=== PATIENT | female | born 1935 | race Caucasian/White ===

== ENCOUNTER 2019-03-19 14:36 | Outpatient (CLI) | payer MEDICARE, OTHER, SELFPAY ==
--- NOTE | 2019-03-19 | US_ITS ---
WS: [id number] DUPLEX CAROTID ULTRASOUND HISTORY: CAROTID STENOSIS RIGHT COMPARISON: None available. Peak systolic measurements are as follows (cm/sec): Right CCA: 69 Left CCA: 77 Right PICA: 55 Left PICA: 73 Right FELIPA: 72 Left FELIPA: 64 Right DICA: 55 Left DICA: 68 Right ECA: 97 Left ECA: 75 Vertebral arteries are antegrade. Right ICA/CCA: 1.0 Left ICA/CCA: 1.0 No significant atherosclerosis. No stenosis. US/ROR carotid duplex BI IMPRESSION: Normal carotid ultrasound.
== END 2019-03-19 14:37 | disposition home or self-care (01) ==
PROVIDERS: Family Provider Family Medicine; PCP Family Medicine; Referring Provider Family Medicine; Visit Provider Family Medicine
DX: I65.21 Occlusion and stenosis of right carotid artery (principal)

== ENCOUNTER → 2019-10-13 09:44 | Outpatient (BNVA) | payer MEDICARE, OTHER, SELFPAY | PROVIDERS: Family Provider Family Medicine; PCP Family Medicine; Visit Provider Dermatology | DX: L57.0 Actinic keratosis (principal); L81.9 Disorder of pigmentation, unspecified; D48.9 Neoplasm of uncertain behavior, unspecified; L82.1 Other seborrheic keratosis; Z85.828 Personal history of other malignant neoplasm of skin | CPT/HCPCS: 11102; 17000; 17003; 88304; 88305; 99203; 99204 ==

== ENCOUNTER → 2019-11-10 10:12 | Outpatient (BNVA) | payer MEDICARE, OTHER, SELFPAY | PROVIDERS: Family Provider Family Medicine; PCP Family Medicine; Visit Provider Dermatology | DX: D04.4 Carcinoma in situ of skin of scalp and neck (principal); Z85.828 Personal history of other malignant neoplasm of skin; L57.0 Actinic keratosis | CPT/HCPCS: 17000; 17003; 99213 ==

== ENCOUNTER 2019-11-26 08:53 | Emergency (ER) | payer MEDICARE, OTHER, SELFPAY ==
[2019-11-26 08:56] VITALS: BP 183/77; PULSE 75; RESP 18; TEMP 36.6; O2SAT 100; BMI 25.6
--- NOTE | 2019-11-26 09:08 | XRR_ITS ---
PROCEDURE INFORMATION: Exam: XR Right Knee Exam date and time: 11/26/2019 10:03 AM Age: 84 years old Clinical indication: Injury or trauma; Fall; Initial encounter; Blunt trauma; Knee; Right; Injury date: 11/26/19 TECHNIQUE: Imaging protocol: XR Right knee. Views: 3 views. COMPARISON: No relevant prior studies available. FINDINGS: Bones/joints: Severe degenerative change , joint effusion, and intra-articular calcifications. No acute bony injury or malalignment in the visualized right knee. Soft tissues: Calcification at the quadriceps and patellar tendon attachment sites. Vasculature: Vascular calcification. XR/XR knee RT 3V* [id number] IMPRESSION: No acute bony injury or malalignment in the visualized right knee.
--- NOTE | 2019-11-26 09:08 | XRR_ITS ---
PROCEDURE INFORMATION: Exam: XR Right Shoulder Exam date and time: 11/26/2019 9:09 AM Age: 84 years old Clinical indication: Injury or trauma; Fall; Initial encounter; Blunt trauma (contusions or hematomas); Shoulder; Right; Injury date: 11/26/19 TECHNIQUE: Imaging protocol: XR Right shoulder. Views: 2 or more views. COMPARISON: No relevant prior studies available. FINDINGS: Bones/joints: Acute comminuted, impacted, and displaced right humeral neck fracture, with extension into the right greater tuberosity. Severe degenerative change. Soft tissues: Soft tissue swelling. XR/XR shoulder RT min 2V* [id number] IMPRESSION: Acute comminuted, impacted, and displaced right humeral neck fracture, with extension into the right greater tuberosity.
--- NOTE | 2019-11-26 09:08 | XRR_ITS ---
PROCEDURE INFORMATION: Exam: XR Right Humerus Exam date and time: 11/26/2019 9:09 AM Age: 84 years old Clinical indication: Injury or trauma; Fall; Initial encounter; Blunt trauma (contusions or hematomas); Arm, upper; Right; Injury date: 11/26/19 TECHNIQUE: Imaging protocol: XR Right humerus Views: 2 or more views. COMPARISON: No relevant prior studies available. FINDINGS: Bones/joints: Acute comminuted, impacted, and displaced right humeral neck fracture, with fracture extension into the greater tuberosity. Severe degenerative change. Soft tissues: Soft tissue swelling. XR/[place] [id number] IMPRESSION: Acute comminuted, impacted, and displaced right humeral neck fracture, with fracture extension into the greater tuberosity.
--- NOTE | 2019-11-26 09:09 | W.ED.FALL ---
HPI - Fall General: Chief Complaint: Fall Stated Complaint: FALL FACIAL INJURY Time Seen by Provider: 11/26/19 09:00 History of Present Illness: HPI Narrative: Patient arise from home after a fall when she was trying in the bed she tripped she says and sustained pain to her right shoulder area into her right knee. Patient does not not want to move her right arm. Denies any other injuries. 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 MD complaint: fall Onset (ago): minute(s) Fall from: standing Fall witnessed: no Place fall occurred: home Loss of consciousness: None Prolonged down time: no Symptoms prior to fall: none Context: tripped/slipped Associated symptoms-after fall: Denies abdominal pain, chest pain or headache(s) Review of Systems Const: Denies: fever(s), chills or body aches Eyes: Denies: change in vision or blurry vision ENMT: Denies: throat pain or nasal congestion Card: Denies: chest pain or dyspnea on exertion Resp: Denies: dyspnea, productive cough or non-productive cough GI: Denies: abdominal pain, nausea or vomiting Musc: Reports: extremity pain and joint pain (Right shoulder right knee) Skin/Breast: Denies: rash Neuro: Denies: headache(s) Psych: Denies: anxiety or depression Mitul/Lymph: Denies: easy bruising PFSH ED PFSH: Medical History (Updated 11/26/19 @ 10:44 by ALEXANDRIA Rosales) Actinic keratoses History of nonmelanoma skin cancer Family History Other CAD (coronary artery disease) Cancer Diabetes Social History Smoking and tobacco status: never smoked Alcohol intake: never History of recent travel: No Physical Exam Const: COMMON NORMALS: no acute distress, average body habitus and patient oriented x3 HENMT: COMMON NORMALS: normocephalic HEAD & SCALP: normal to inspection and normocephalic FACE & SINUS: normal facial exam Eye: COMMON NORMALS: conjunctivae normal GENERAL EYE: appearance normal, both eyes and all related structures CONJUNCTIVA: Yes conjunctivae normal Neck/C-Spine: COMMON NORMALS: no JVD Chest: COMMONS NORMALS: normal inspection of the chest Resp: COMMON NORMALS: normal respiratory effort and clear to auscultation bilaterally AUSCULTATION: clear to auscultation bilaterally Cardio: COMMON NORMALS: no JVD, regular rate and regular rhythm RATE: regular rate RHYTHM: regular rhythm GI: COMMON NORMALS: Normal to inspection, nondistended, normoactive bowel sounds present Extremity: RIGHT UPPER EXTREMITY: Yes shoulder joint (Very tender not wanting to move mild swelling) RIGHT LOWER EXTREMITY: Yes knee joint (Good range of motion slightly tender no bruising or abrasions noted) Neuro: COMMON NORMALS: patient oriented x3 Course Vital Signs: Vital signs: Vital Signs Temperature 97.8 F 11/26/19 08:56 Pulse Rate 66 11/26/19 10:35 Respiratory Rate 12 11/26/19 10:35 Blood Pressure 129/72 11/26/19 10:35 Pulse Oximetry 94 11/26/19 10:35 MDM - Fall MDM Narrative: Medical decision making narrative: Discussed case with Dr. Krishnamurthy and decide on treatment plan together Discharge Plan Discharge Patient Disposition: Home Clinical Impression: Fracture, humerus, greater tuberosity Qualifiers: Encounter type: initial encounter Fracture type: closed Fracture alignment: displaced Laterality: right Qualified Code(s): S42.251A - Displaced fracture of greater tuberosity of right humerus, initial encounter for closed fracture Condition: Stable Prescriptions: New ketorolac 10 mg tablet 10 mg PO Q8H PRN (Reason: pain) 3 Days Qty: 10 RF: 0 No Action doxycycline hyclate 50 mg capsule 50 mg PO DAILY RF: 0 lovastatin 40 mg tablet 60 mg PO DAILY RF: 0 losartan 50 mg tablet 50 mg PO BID RF: 0 vitamin H00-aulowmv B1 1,000-100 mg/mL solution 1 ml IM Q30D RF: 0 glipizide 5 mg tablet 5 mg PO DAILY RF: 0 febuxostat [Uloric] 40 mg tablet 40 mg PO DAILY RF: 0 zolpidem 5 mg tablet 5 mg PO BEDTIME RF: 0 mupirocin 2 % ointment 1 applic TOPICAL BID Qty: 22 RF: 2 metoprolol tartrate 50 mg Tablet 50 mg PO BID RF: 0 Discharge Orders: Discharge Order (Routine); Ordered 11/26/19 Ordered By: Tito Cervantes Referrals: Bhavik Ball MD [Primary Care Provider] - Discharge Diet: Usual diet Discharge Activity: Limit activity as instructed Patient Instructions: Fractures - Humerus, Arm Fracture in Adults (ED) Activity Restrictions/Additional Instructions: Follow-up with medical provider as directed. Take medications as prescribed. Return to the ER or your medical provider if condition worsens. Please read and understand discharge instructions. If any questions ask please. Follow-up with orthopedic clinic as scheduled by the hospital Discharge Date/Time: 11/26/19 10:59 Coding Level of Care Code ED Analytical Data Scientist for Chg Fwd 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
[2019-11-26] MEDS: ketorolac 30 mg/mL INJ IVP (10:05)
[2019-11-26 10:06] VITALS: BP 160/74; PULSE 71; RESP 23; O2SAT 94
[2019-11-26 10:35] VITALS: BP 129/72; PULSE 66; RESP 12; O2SAT 94
--- NOTE | 2019-11-26 11:23 | DCPLANNER ---
shared services manager had message to schedule a follow up appointment for patient with ortho. shared services manager called the ortho clinic, spoke with Pat, gave clinic patients information. shared services manager was told that patients information would be printed and reviewed. Clinic will call patient with appointment information.
--- NOTE | 2019-12-01 08:04 | DCPLANNER ---
Patient had a follow up appointment scheduled for 11.29.19 - patient did attend the appointment.
== END 2019-11-26 10:59 | disposition home or self-care (01) ==
PROVIDERS: Emergency Provider Nurse Practitioner Family; PCP Family Medicine
DX: S42.251A Displaced fracture of greater tuberosity of right humerus, initial encounter for closed fracture (principal); W01.0XXA Fall on same level from slipping, tripping and stumbling without subsequent striking against object, initial encounter
CPT/HCPCS: 12345; 73030; 73060; 73562; 96374; 96375; 99282; 99283; E0114; J1885

== ENCOUNTER 2019-12-07 08:31 | Outpatient (CLI) | payer MEDICARE, OTHER, SELFPAY ==
--- NOTE | 2019-12-14 14:11 | MR_ITS ---
WS: [id number] MRI RIGHT SHOULDER NONCONTRAST TECHNIQUE: Sagittal T2, coronal T1, T2 and proton density imaging. Axial gradient PDE imaging. CLINICAL INFORMATION: S42.251A Displaced fracture of greater tuberosity of righ... COMPARISON: Radiograph December 09, 2019 FINDINGS: Markedly comminuted impacted fracture involving the right humeral head and neck. Comminuted fracture extends into the greater tuberosity with avulsion. Diffuse edema about the right humeral head and nec k and right glenohumeral joint. Associated blood products in the subacromial/subdeltoid bursa with gallego rrounding hematoma. Diffuse edema in the adjacent soft tissues. Small amount of edema along the inferior anterior glenoid which appears intact. Advanced degenerative changes AC joint with fluid and edema. Mild downsloping of the acromion with loss of the subacromial space.No visualized scapular fractures. Narrowing of the subacromial space. Humeral head is rotated and displaced posterior laterally relative to the humeral shaft. 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 Distal supraspinatus appears intact. Infraspinatus tendon appears intact. Fluid along the bicep s tendon sheath. Diffuse edema involving the subscapularis tendon appears intact. IMPRESSION: 1. Markedly comminuted fracture involving the humeral head and neck with diffuse surrounding edema a nd hematoma. 2. Comminuted fractures involving the humeral neck extending into the greater tuberosity with avulsi on. 3. Humeral head is rotated and displaced posterior laterally relative to the humeral shaft. 4. Bony glenoid appears intact. Small amount of edema along the anterior inferior glenoid. 5. Associated moderate subacromial/subdeltoid effusion and glenohumeral joint effusion with hematoma . 6. No definite visualized scapular fractures.
== END 2019-12-07 08:32 | disposition home or self-care (01) ==
LOC: RADSHAW 08:37
PROVIDERS: PCP Family Medicine; Visit Provider Specialist
DX: S42.251A Displaced fracture of greater tuberosity of right humerus, initial encounter for closed fracture (principal); S40.021A Contusion of right upper arm, initial encounter; X58.XXXA Exposure to other specified factors, initial encounter; M25.411 Effusion, right shoulder
CPT/HCPCS: 73221

== ENCOUNTER → 2019-12-09 11:29 | Outpatient (BNVA) | payer MEDICARE, OTHER, SELFPAY | PROVIDERS: PCP Family Medicine; Visit Provider Specialist | DX: S42.91XA Fracture of right shoulder girdle, part unspecified, initial encounter for closed fracture (principal); S42.251A Displaced fracture of greater tuberosity of right humerus, initial encounter for closed fracture; X58.XXXA Exposure to other specified factors, initial encounter | CPT/HCPCS: 73030 ==

== ENCOUNTER → 2019-12-30 11:20 | Outpatient (BNVA) | payer MEDICARE, OTHER, SELFPAY | PROVIDERS: PCP Family Medicine; Visit Provider Specialist | DX: S42.91XA Fracture of right shoulder girdle, part unspecified, initial encounter for closed fracture (principal); S42.251A Displaced fracture of greater tuberosity of right humerus, initial encounter for closed fracture; X58.XXXA Exposure to other specified factors, initial encounter | CPT/HCPCS: 73030 ==

== ENCOUNTER → 2020-01-24 10:41 | Outpatient (BNVA) | payer MEDICARE, OTHER, SELFPAY | PROVIDERS: PCP Family Medicine; Visit Provider Specialist | DX: S42.251A Displaced fracture of greater tuberosity of right humerus, initial encounter for closed fracture (principal); S42.91XA Fracture of right shoulder girdle, part unspecified, initial encounter for closed fracture; X58.XXXA Exposure to other specified factors, initial encounter | CPT/HCPCS: 73030 ==

== ENCOUNTER 2020-09-20 09:29 | Outpatient (CLI) | payer MEDICARE, OTHER, SELFPAY ==
--- NOTE | 2020-09-20 09:37 | NM_ITS ---
WS: [id number] NUCLEAR MEDICINE GASTRIC STUDY CLINICAL INFORMATION: GASTROPARESIS TECHNIQUE: Following oral ingestion of cooked egg mixed with 0.88 mCi technetium 99m sulfur colloid, anterior images of the stomach were obtained over the course of 90 minutes. Activity curve was perfor med over the course of 90 minutes with linear regression analysis. COMPARISON: None. FINDINGS: Oral ingestion of cooked egg mixture. T1/2: 405 minutes 16% emptying at 119 minutes. NM/[place] [id number] IMPRESSION: Markedly delayed gastric emptying with only 16% emptying at 2 hours. *Normal median T1 half 90 minutes for solid egg meal (45-110 minutes). Delayed gastric retention is defined as 90% retained at 1 hour, 60% at 2 hour s, 30% at 3 hours, and 10% at 4 hours (normal percent gastric retention is 37-9 0% at 1 hour, 30-60% at 2 hours, and 0-10% at 4 hours).
== END 2020-09-20 09:30 | disposition home or self-care (01) ==
LOC: RAD 09:34
PROVIDERS: PCP Family Medicine; Visit Provider Family Medicine
DX: K31.84 Gastroparesis (principal)
CPT/HCPCS: 78264; A9541

== ENCOUNTER 2021-08-20 14:24 | Outpatient (CLI) | payer MEDICARE, OTHER, SELFPAY ==
--- NOTE | 2021-08-20 14:37 | CT_ITS ---
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 Coronal and sagittal reformats are submitted. All CT scans at [facility] use at least one of these dose optimization techniques: automated exposure control; mA and/or kV adjustment per patient size (includes targeted exams where dose is matched to clinical indication); or iterative reconstruction. CONTRAST: None DLP: 501.27 mGy.cm COMPARISON: None available. Lungs and central airway: No pulmonary nodule or mass. No pneumonia. Pleura: Normal. No pleural effusion. Heart and pericardium: Mild LEFT heart enlargement. No effusion. Mediastinum and rissa: No mediastinum or hilar adenopathy. Vessels: Mild scattered atherosclerotic plaque within the aorta. Pulmonary artery size is equal to th e aorta. Chest wall and lower neck: No soft tissue masses. Upper abdomen: Prior cholecystectomy. Incompletely visualized 18 x 14 mm mass partially exophytic fro m the mid to upper RIGHT kidney. This is not a simple cyst as there is an area of increased attenuati on which may be calcification or septation. No adrenal mass. Mild pancreatic atrophy. Splenic granulo hill. Osseous structures: Advanced spondylitic changes throughout the thoracic spine. No osteoblastic or os teolytic bone disease. Marked deformity involving the RIGHT humeral head and glenohumeral joint. Moderate calcification at the origin of celiac axis and SMA. CT/CT chest wo con [id number] IMPRESSION: 1. No pulmonary mass or nodule. 2. No adenopathy. 3. Indeterminate exophytic mass from the RIGHT kidney measures 18 x 14 mm. Rec ommend follow-up renal ultrasound to exclude solid mass. This is not a simple c yst. 4. Prior cholecystectomy.
[2021-08-20 15:17] LABS: Blood Urea Nitrogen 21 mg/dL (8-23)
== END 2021-08-20 14:25 | disposition home or self-care (01) ==
PROVIDERS: PCP Family Medicine; Visit Provider Specialist
DX: D10.39 Benign neoplasm of other parts of mouth (principal); N28.89 Other specified disorders of kidney and ureter; Z90.49 Acquired absence of other specified parts of digestive tract
CPT/HCPCS: 71250; 82565; 84520

== ENCOUNTER 2021-08-21 11:51 | Outpatient (CLI) | payer MEDICARE, OTHER, SELFPAY ==
--- NOTE | 2021-08-21 11:58 | MR_ITS ---
WS: [id number] MRI OF THE ORBITS, FACE AND NECK WITHOUT GADOLINIUM ENHANCEMENT. INDICATION: Mass LEFT side of tongue TECHNIQUE: Axial T1 and T2 coronal T2 sagittal T2 coronal T1 coronal T1 fat sat axial T2 coronal T2 f at sat coronal STIR and axial STIR imaging through the tongue base. GFR 21. Gadolinium not administered. Exam is somewhat limited by patient motion, lack of gadolinium, and susceptibility artifact from dental hardware FINDINGS: Correlated not administered due to GFR. 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 Susceptibility artifact in this area degrades images from dental hardware. Infiltrating neoplasm measures approximately 4.1 x 1.9 x 3.9 cm AP by transverse by craniocaudal. Inf erior extension to the tongue base which is relatively spared. Mass effect on the genioglossus. Perip heral extension involves the mylohyoid and hypoglossus. This extends anteriorly and laterally abuttin g the maxilla and mandible. This does not appear across midline. Posterior extension just to the supe rior submandibular space and inferior extension to the sublingual space. LEFT submandibular gland shanelle ears normal. Root of the tongue appears normal. Normal vallecula and epiglottis. Normal piriform sinu ses. Prominent LEFT level 2 cervical lymph node anterior to the sternocleidomastoid measuring 6 x 10 x 5 m m. No other suspicious cervical lymph nodes visualized. This can be further evaluated with PET/CT. 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 Chronic wedge-shaped infarct in the LEFT cerebellum. Mode rate parenchymal volume loss partially visualized intracranially. Parotid glands appear normal. Moderate spondylitic changes cervical spine. Small disc protrusions at C3-C4, C4-C5 and C5-C6. Mild c entral canal stenosis C4-C5. Impression MR/[place] [id number] IMPRESSION: 1. T2 hyperintense mass involving the LEFT intrinsic muscles of the tongue ext ending from the oral mucosal surface inferiorly to the level of the mandible on the LEFT. This measures approximately 4.1 x 1.8 x 3.9 cm compatible with neopl asm. 2. Associated LEFT RIGHT mass effect. This does not cross the lingual septum. 3. Tongue mass extends peripherally to involve the mylohyoid and hypoglossus. Mass effect on the genioglossus inferiorly. This extends inferiorly into the gallego blingual space and just into the anterior submandibular space 4. Slightly prominent level 2 cervical lymph anterior to the sternomastoid dionicio suring 10 x 5 mm is nonspecific. No other enlarged cervical lymph nodes. PET CT could be used in further staging. 5. Vallecula and piriform sinuses appears normal. Normal epiglottis.
== END 2021-08-21 11:52 | disposition home or self-care (01) ==
LOC: RAD 11:52
PROVIDERS: PCP Family Medicine; Visit Provider Specialist
DX: D10.39 Benign neoplasm of other parts of mouth (principal); R93.89 Abnormal findings on diagnostic imaging of other specified body structures; R59.0 Localized enlarged lymph nodes
CPT/HCPCS: 70336

== ENCOUNTER 2021-10-23 08:51 | Outpatient (CLI) | payer MEDICARE, OTHER, SELFPAY ==
[2021-10-23 09:01] LABS: Basophils % 0.2 %; Eosinophils % 0.2 %; Lymphocytes % 36.3 %; Mean Corpuscular Hemoglobin 30.2 pg (28.0-34.0); Mean Corpuscular Volume 97.7 fl (81-99); Mean Platelet Volume 11.1 fL (7.4-10.4); Monocytes # 0.3 10^3/uL (0.2-0.9); Monocytes % 5.6 %; Neutrophils # 3.11 10^3/uL (1.8-7.7); Neutrophils % 55.9 %; Nucleated Red Blood Cells % 0 %; Platelet Count 153 10^3/cmm (130-400); Red Blood Count 2.15 10^6/uL (4.1-5.3); Red Cell Distribution Width 18.7 % (12.1-15.1); White Blood Count 5.6 10^3/uL (4.0-10.0)
[2021-10-23 09:07] LABS: Hemoglobin 6.5 g/dL (11.5-15.3)
== END 2021-10-23 08:52 | disposition home or self-care (01) ==
PROVIDERS: PCP Family Medicine; Visit Provider Nurse Practitioner Family
DX: D64.9 Anemia, unspecified (principal)
CPT/HCPCS: 85025

== ENCOUNTER → 2021-10-24 08:08 | Day surgery (SDC) | payer MEDICARE, OTHER, SELFPAY ==
[2021-10-24] VITALS (9 sets, daily range): BP systolic 196–203; BP diastolic 81–99; PULSE 85–102; RESP 18; TEMP 36.4–37.1; O2SAT 92–99
[2021-10-24 08:38] LABS: Hematocrit 21.1 % (37.0-47.0); Hemoglobin 6.6 g/dL (11.5-15.3)
--- NOTE | 2021-10-24 10:05 | PC.NURSE ---
Pt to GI lab for 2 units PRBC's. Hg noted at 6.6. First unit infusing without difficulty to left upper arm. No reaction noted.
[2021-10-24] MEDS: sodium chloride 0.9% (100 ml) 100 ML 10 ML ×2 (10:17→12:08)
== END ==
LOC: GILAB 08:11
PROVIDERS: PCP Family Medicine; Visit Provider Nurse Practitioner Family
DX: D64.9 Anemia, unspecified (principal)
CPT/HCPCS: 36415; 36430; 85014; 85018; 86850; 86900; 86920; P9016

== ENCOUNTER 2021-10-26 04:26 | Inpatient (IN) | payer MEDICARE, OTHER, SELFPAY ==
[2021-10-26] VITALS (28 sets, daily range): BP systolic 114–138; BP diastolic 75–88; PULSE 72–120; RESP 11–39; TEMP 36.3–37.7; O2SAT 92–100; BMI 20.8; BMI 24.3
--- NOTE | 2021-10-26 04:30 | XRR_ITS ---
PROCEDURE INFORMATION: Exam: XR Chest Exam date and time: 10/26/2021 4:33 AM Age: 86 years old Clinical indication: Shortness of breath; Chest pressure; Patient HX: C/O chest pain with SOB. Copd. History of skin and tongue cancer. ; Additional info: Cp TECHNIQUE: Imaging protocol: Radiologic exam of the chest. Views: 1 view. COMPARISON: CT chest con [id number] 08/20/2021 3:24 PM FINDINGS: Lungs: There is redistribution and indistinctness of the pulmonary vasculature, in association with haziness of the lungs and small bilateral pleural effusions, which in the setting of cardiomegaly is consistent with pulmonary edema. Pneumonia should be excluded clinically. No pneumothorax. Pleural spaces: See Lungs finding. Heart/Mediastinum: Stable cardiomediastinal silhouette. Bones/joints: Degenerative changes of the spine and left shoulder joint seen. Old fracture deformity of the right proximal humerus re-identified. XR/XR chest 1V portable [id number] IMPRESSION: Imaging findings of pulmonary edema with small bilateral pleural effusions. Pneumonia should be excluded clinically.
--- NOTE | 2021-10-26 04:33 | ECG_ITS ---
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 Measurements Intervals [place] Rate: 118 P: 53 TX: 160 QRS: -9 QRSD: 81 T: 5 QT: 336 QTc: 472 Interpretive Statements SINUS TACHYCARDIA Compared to ECG 04/05/2018 13:20:28 Sinus rhythm no longer present T-wave abnormality no longer present Electronically Signed On 10-26-2021 17:47:46 CDT by Jared Gage M.D. [id number]
--- NOTE | 2021-10-26 04:57 | ED_ITS ---
HPI - Chest Pain General: Chief Complaint: Chest Pain Stated Complaint: CP/SOB Time Seen by Provider: 10/26/21 04:26 Source: patient and EMS Mode of arrival: EMS Limitations: no limitations History of Present Illness: 86-year-old female here [facility] she has had a history of throat cancer did have recent surgery states she woke up this morning having severe chest pain states her pain was a 9 out of 10 was given nitro by EMS states her pain is improved is currently a 2 out of 10. She states she has had some slight shortness of breath as well. Patient is very frail appearing. She denies any fever denies any cough denies any vomiting or diarrhea. Associated symptoms: Deny abdominal pain, dyspnea, fever(s), nausea or vomiting Review of Systems Const: Denies: fever(s), chills, body aches or change in appetite Eyes: Denies: blurry vision or eye discomfort ENMT: Denies: throat pain or dental pain Card: Reports: chest pain Resp: Denies: dyspnea GI: Denies: abdominal pain, nausea, vomiting or diarrhea : Denies: dysuria Musc: Denies: neck pain or back pain Skin/Breast: Denies: rash Neuro: Denies: headache(s) Psych: Denies: depression Mitul/Lymph: Denies: easy bruising All/Imm: Denies: urticaria PFSH ED PFSH: Medical History Actinic keratoses COPD (chronic obstructive pulmonary disease) Diabetes History of nonmelanoma skin cancer Hypertension Renal failure Family History Other CAD (coronary artery disease) Cancer Diabetes Social History Smoking and tobacco status: never smoked Alcohol intake: never History of recent travel: No Physical Exam Const: COMMON NORMALS: patient oriented x3 GENERAL APPEARANCE: frail appe aring HENMT: COMMON NORMALS: normocephalic and atraumatic HEAD & SCALP: normocephalic and atraumatic Eye: COMMON NORMALS: Equal, round and reactive pupils present and EOMs intact bilaterally PUPIL: Yes Equal, round and reactive pupils present Neck/C-Spine: COMMON NORMALS: full ROM and supple Chest: COMMONS NORMALS: normal inspection of the chest and normal palpation of entire chest wall Resp: COMMON NORMALS: normal respiratory effort, No retractions, No use of accessory muscles and clear to auscultation bilaterally AUSCULTATION: clear to auscultation bilaterally Cardio: COMMON NORMALS: regular rhythm and No murmurs present (Cardio) RATE: tachycardic RHYTHM: regular rhythm GI: COMMON NORMALS: Normal to inspection, nondistended, normoactive bowel sounds present, Soft to palpation, non-tender and no masses PALPATION: Yes Soft to palpation Extremity: COMMON NORMALS: normal to inspection and full ROM Neuro: COMMON NORMALS: patient oriented x3, moves all extremities and no focal motor deficits Psych: COMMON NORMALS: mental status grossly normal, Normal thought process present and cooperative THOUGHT PROCESS: Normal thought process present Skin: COMMON NORMALS: no rashes or lesions noted and no wounds GENERAL SKIN EXAM: no rashes or lesions noted Course Vital Signs: Vital signs: Vital Signs Temperature 98.0 F 10/26/21 04:26 Pulse Rate 120 H 10/26/21 04:26 Respiratory Rate 18 10/26/21 04:26 Blood Pressure 128/79 10/26/21 04:26 Pulse Oximetry 95 10/26/21 04:26 Oxygen Delivery Me thod 10/26/21 04:26 MDM - Chest Pain Medical Decision Making Patient presents for chest pain her pain is improved her troponin is elevated consistent with NSTEMI have had a long discussion with her she does not want any aggressive treatment she does not want a cath she has been to be admitted to be evaluated there for medical management we will give her Lovenox here. Lab Data : 10/26/21 05:00 10/26/21 05:00 Laboratory Results WBC 8.0 10^3/uL (4.0-10.0) 10/26/21 05:00 RBC 3.64 10^6/uL (4.1-5.3) L 10/26/21 05:00 Hgb 11.1 g/dL (11.5-15.3) L 10/26/21 05:00 Hct 33.7 % (37.0-47.0) L 10/26/21 05:00 MCV 92.6 fl (81-99) 10/26/21 05:00 MCH 30.5 pg (28.0-34.0) 10/26/21 05:00 MCHC 32.9 g/dL (30.0-36.0) 10/26/21 05:00 RDW 17.6 % (12.1-15.1) H 10/26/21 05:00 Plt Count 176 10^3/cmm (130-400) 10/26/21 05:00 MPV 10.5 fL (7.4-10.4) H 10/26/21 05:00 Neut % (Auto) 70.3 % 10/26/21 05:00 Lymph % (Auto) 22.7 % 10/26/21 05:00 Bacon % (Auto) 5.4 % 10/26/21 05:00 Eos % (Auto) 0.0 % 10/26/21 05:00 Baso % (Auto) 0.1 % 10/26/21 05:00 Neut # (Auto) 5.63 10^3/uL (1.8-7.7) 10/26/21 05:00 Lymph # (Auto) 1.8 10^3/uL (0.8-4.8) 10/26/21 05:00 Bacon # (Auto) 0.4 10^3/uL (0.2-0.9) 10/26/21 05:00 Eos # (Auto) 0.0 10^3/uL (0.0-0.8) 10/26/21 05:00 Baso # (Auto) 0.0 10^3/uL (0.0-0.1) 10/26/21 05:00 Nucleated RBC % (auto) 0 % 10/26/21 05:00 Nucleated RBCs # 0.0 /100WBC 10/26/21 05:00 D-Dimer 3.80 ug/mIFEU (0-0.59) H 10/26/21 05:00 Sodium 134 mmol/L (136-145) L 10/26/21 05:00 Potassium 4.3 mmol/L (3.5-5.1) 10/26/21 05:00 Chloride 102 mmol/L (98-107) 10/26/21 05:00 Carbon Dioxide 19 mmol/L (22-29) L 10/26/21 05:00 Anion Gap 17.3 (5-19) 10/26/21 05:00 BUN 36 mg/dL (8-23) H 10/26/21 05:00 Creatinine 1.4 mg/dL (0.5-0.9) H 10/26/21 05:00 GFR Calculation Not Reportable 10/26/21 05:00 Glucose 191 mg/dL (65-115) H 10/26/21 05:00 Calculated Osmolality 291 mOsm/kg (285-295) 10/26/21 05:00 Calcium 8.0 mg/dL (8.5-10.5) L 10/26/21 05:00 Total Bilirubin 0.2 mg/dL (0.15-1.2) 10/26/21 05:00 AST 37 U/L (0-32) H 10/26/21 05:00 ALT 24 U/L (0-33) 10/26/21 05:00 Alkaline Phosphatase 136 U/L (35-105) H 10/26/21 05:00 Troponin T Baseline 557 ng/L (0-10) H* 10/26/21 05:00 Total Protein 6.0 g/dL (6.6-8.7) L 10/26/21 05:00 Albumin 2.3 g/dL (3.5-5.2) L 10/26/21 05:00 Globulin 3.7 g/dL (1.3-4.6) 10/26/21 05:00 EKG Data EKG 1: I personally reviewed and interpreted this EKG as follows: EKG interpretation date: 10/26/21 EKG interpretation time: 04:33 Interpretation: sinus tach hr [address] or t wave abnormalities qrs 81 qtc 406 Discharge Plan Discharge Condition: Stable Prescriptions: No Action lovastatin 40 mg tablet 60 mg PO DAILY Rx Instructions: per tube metoprolol tartrate 50 mg Tablet 50 mg PO BID Rx Instructions: per tube acetaminophen 325 mg Tablet 650 mg PO .Q4HR PRN (Reason: Pain) oxycodone 5 mg/5 mL Solution 2.5 mg feeding tube .Q4HR PRN (Reason: Pain) Neurontin 250 mg/5 mL Solution 100 mg PO TID Rx Instructions: per tube cyanocobalamin (vitamin B-12) 1,000 mcg/mL solution 1,000 mcg IM .[id number] folic acid 1 mg Tablet 1 mg PO DAILY Augmentin 500-125 mg Tablet 1 tab PO BID chlorhexidine gluconate 0.12 % Mouthwash 15 ml PO .QSHIFT furosemide 40 mg/4 mL Solution 40 mg PO QAM psyllium Packet 1 packet feeding tube DAILY PRN (Reason: Constipation) thiamine HCl (vitamin B1) 100 mg/mL Solution 100 mg PO DAILY Rx Instructions: per tube ramelteon 8 mg Tablet 8 mg PO DAILY PRN (Reason: Insomnia) Rx Instructions: per tube Referrals: Bhavik Ball MD [Primary Care Provider] - Coding Level of Care Code ED [employer] 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
[2021-10-26 05:04] LABS: Basophils % 0.1 %; Hematocrit 33.7 % (37.0-47.0); Hemoglobin 11.1 g/dL (11.5-15.3); Lymphocytes # 1.8 10^3/uL (0.8-4.8); Lymphocytes % 22.7 %; Mean Corpuscular HGB Conc 32.9 g/dL (30.0-36.0); Mean Corpuscular Hemoglobin 30.5 pg (28.0-34.0); Mean Corpuscular Volume 92.6 fl (81-99); Mean Platelet Volume 10.5 fL (7.4-10.4); Monocytes # 0.4 10^3/uL (0.2-0.9); Monocytes % 5.4 %; Neutrophils # 5.63 10^3/uL (1.8-7.7); Neutrophils % 70.3 %; Nucleated Red Blood Cells % 0 %; Platelet Count 176 10^3/cmm (130-400); Red Blood Count 3.64 10^6/uL (4.1-5.3); Red Cell Distribution Width 17.6 % (12.1-15.1)
[2021-10-26 05:20] LABS: Alanine Aminotransferase 24 U/L (0-33); Albumin Level 2.3 g/dL (3.5-5.2); Alkaline Phosphatase 136 U/L (35-105); Aspartate Amino Transferase 37 U/L (0-32); Blood Urea Nitrogen 36 mg/dL (8-23); Carbon Dioxide 19 mmol/L (22-29); Chloride 102 mmol/L (98-107); Globulin 3.7 g/dL (1.3-4.6); Glucose 191 mg/dL (65-115); Osmolality Calculated 291 mOsm/kg (285-295); Sodium 134 mmol/L (136-145); Total Bilirubin 0.2 mg/dL (0.15-1.2)
--- NOTE | 2021-10-26 05:20 | CTR_ITS ---
PROCEDURE INFORMATION: Exam: CTA Chest With Contrast Exam date and time: 10/26/2021 5:37 AM Age: 86 years old Clinical indication: Pain and abnormal findings; Abnormal diagnostic tests; Elevated d-dimer; Shortness of breath; Chest pressure; Patient HX: C/O chest pain with SOB. Elevated d dimer. Copd. History of skin/tongue cancer. ; Additional info: Cp TECHNIQUE: Imaging protocol: Computed tomographic angiography of the chest with contrast. 3D rendering (Not supervised by radiologist): MIP and/or 3D reconstructed images were created by the technologist. Radiation optimization: All CT scans at this facility use at least one of these dose optimization techniques: automated exposure control; mA and/or kV adjustment per patient size (includes targeted exams where dose is matched to clinical indication); or iterative reconstruction. Contrast material: OMNI 350; Contrast volume: 81 ml; Contrast route: INTRAVENOUS (IV); COMPARISON: CT chest [facility] [id number] 08/20/2021 3:24 PM RADIATION DOSE METRICS: Total DLP (mGy-cm): 314.08 FINDINGS: Pulmonary arteries: Normal. No pulmonary emboli. Aorta: Mild diffuse atherosclerotic disease is present. No aortic aneurysm. No aortic dissection. Lungs: There is mosaic pattern of attenuation of the lungs, in association with paraseptal thickening and moderate bilateral pleural effusions, consistent with pulmonary edema. There is nonenhancing consolidations in the lower lobes, in association with peribronchial thickening. Tiny calcified granuloma noted in the left upper lobe. No pneumothorax. Pleural spaces: See Lungs finding. Heart: Mildly enlarged heart. Coronary atherosclerotic calcifications seen. No pericardial effusion. Lymph nodes: Tiny calcified mediastinal and left hilar lymph nodes noted, likely sequela of previous granulomatous disease. Bones/joints: Degenerative changes of the spine and left shoulder joint seen. Old healed fracture deformity of the right proximal humerus seen. Soft tissues: Unremarkable. CT/CT angio chest PE protcl [id number] IMPRESSION: 1. No pulmonary embolus. 2. Pulmonary edema with moderate bilateral pleural effusions. 3. Bilateral lower lobe consolidations, concerning for superimposed pneumonia. Clinical correlation is recommended.
[2021-10-26 05:22] LABS: Anion Gap 17.3 (5-19); Potassium 4.3 mmol/L (3.5-5.1)
[2021-10-26] MEDS: iohexol 350 mg/mL 100 mL Btl IV (05:47)
[2021-10-26 05:49] LABS: Troponin(5th) Baseline 557 ng/L (0-10)
--- NOTE | 2021-10-26 06:06 | ECG_ITS ---
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 Measurements Intervals [place] Rate: 121 P: 45 PA: 148 QRS: -8 QRSD: 80 T: 44 QT: 417 QTc: 592 Interpretive Statements SINUS TACHYCARDIA INFERIOR MYOCARDIAL INFARCTION , PROBABLY OLD [40+ ms Q WAVE AND/OR ST/T ABNORMALITY IN II/aVF] Compared to ECG 04/05/2018 13:20:28 Myocardial infarct finding now present Sinus rhythm no longer present T-wave abnormality no longer present Electronically Signed On 10-26-2021 17:51:56 CDT by Jared Gage M.D. [id number]
--- NOTE | 2021-10-26 06:37 | USCV_ITS ---
Teetee Arango Age: 86 Gender: F : 1935 Exam Date: 10/26/2021 10:31 Ordering Phys: Gustavo Parisi MD Technologist: REMEDIOS [place] [facility] [place]: NSTEMI BP: 114 / 80 HR: 35 Rhythm: Atrial fibrillation Technical Quality: Adequate MEASUREMENTS (Male / Female) Normal Values 2D ECHO LV Diastolic Diameter PLAX 4.2 cm 4.2 - 5.9 / 3.9 - 5.3 cm LV Systolic Diameter PLAX 3.7 cm IVS Diastolic Thickness 1.5 cm 0.6 - 1.0 / 0.6 - 0.9 cm IVS Systolic Thickness 1.8 cm LVPW Diastolic Thickness 1.3 cm 0.6 - 1.0 / 0.6 - 0.9 cm LVPW Systolic Thickness 1.5 cm LVOT Diameter 2.0 cm LV Ejection Fraction 2D Teich 22.4 % LV Ejection Fraction MOD 2C 39.7 % LV Ejection Fraction 2C AL 41.6 % LA Diameter 3.4 cm LA Width 4.3 cm LA Height 5.7 cm RA Width 3.8 cm RA Height 4.4 cm Aorta at Sinotubular Diameter 2.0 cm M-MODE Aortic Annulus Diameter 3.1 cm LA Ao Ratio MM 1.1 MV E Point Septal Separation 0.7 cm DOPPLER AV Peak Velocity 99.3 cm/s LVOT Peak Velocity 59.0 cm/s AV Area Cont Eq vti 2.2 cm squared AV Area Cont Eq pk 1.9 cm squared MV Peak Velocity 124.0 cm/s MV Area PHT 4.8 cm squared MV E' Velocity 68.2 cm/s Mitral E to MV E' Ratio 11.9 Mitral E to LV E' Lateral Ratio 12.0 Mitral E to LV E' Septal Ratio 11.9 TR Peak Velocity 233.0 cm/s TR Peak Gradient 21.7 mmHg TR Mean Velocity 204.2 cm/s TR Mean Gradient 18.3 mmHg TR Velocity Time Integral 85.1 cm TV Peak E Velocity 70.0 cm/s Right Atrial Pressure 8.0 mmHg Pulmonary Artery Systolic Pressu 29.7 mmHg PV Peak Velocity 72.0 cm/s RV Acceleration Time 0.1 s RV Ejection Time 0.2 s RV AcT/ET 0.3 FINDINGS Left Ventricle Normal left ventricular cavity size. Mildly increased left ventricular wall thickness. Severely decreased left ventricular systolic function. Left ventricular ejection fraction is estimated at 25-30 %. Severe global left ventricular hypokinesis. Abnormal septal motion. Right Ventricle Upper normal right ventricular size and mildly decreased systolic function. Right ventricular systolic pressure 39 mmHg. Right Atrium Normal right atrial size. Left Atrium Moderately increased left atrial size. Mitral Valve Moderately thickened mitral valve. Moderate mitral annular calcification. No mitral valve stenosis. Mild to moderate mitral valve regurgitation. Aortic Valve Mildly thickened trileaflet aortic valve. No aortic valve stenosis. No aortic valve regurgitation. Tricuspid Valve Structurally normal tricuspid valve. Mild tricuspid valve regurgitation. Pulmonic Valve Structurally normal pulmonic valve. No pulmonary valve stenosis. Pericardium No pericardial effusion. Aorta Normal size aortic root and proximal ascending aorta. IVC Inferior vena cava not visualized. CONCLUSIONS 1. Normal left ventricular cavity size. Severely decreased left ventricular systolic function. Left ventricular ejection fraction is estimated at 25-30 %. Severe global left ventricular hypokinesis. Abnormal septal motion. 2. Upper normal right ventricular size and mildly decreased systolic function. 3. Moderately increased left atrial size. 4. Mild pulmonary artery pressure estimated at 39 mm Hg. 5. Mild to moderate mitral valve regurgitation. 6. No prior similar studies to compare. Yudi Falcon MD (Electronically Signed) Final Date: 26 October 2021 16:49 S
--- NOTE | 2021-10-26 06:40 | PM.HP ---
Providers/Chief Complaint Admitting Physician: Gustavo Parisi MD Primary Care Provider: Bhavik Ball MD Chief Complaint: CP/SOB History of Present Illness Teetee Arango is a 86 year old female with a recent history of anemia requiring 2 units PRBC, hemoglobin is low 6.6, currently 11.1, etiology unclear, recent hospitalization and surgery at [facility] for oral cancer and throat cancer status post grafting from left arm, PEG tube placement, tracheostomy, currently at [facility], no history of CAD, history of CHF, no history of strokes, does have diabetes, no history of hypertension, who presents to [facility] due to a chest pain. Given her oral cancer, status postsurgery and grafting, she is difficult to understand but I was able to make out most of her answers. She tells me that on the , she is found to be anemic she was also having chest pain at that time, so she was given 2 units PRBC. But she remained anemic so they gave her another unit PRBC. She tells me that at [place], she can do some minimal ambulation, she is PEG tube dependent, she has been having some coughing episodes, some shortness of breath, no fevers, no chills. However early this morning, she started to experience severe substernal chest pain, associate with shortness of breath. She never had chest pain like this before, has never had a CAD history, and has never had coronary angiography. On examination, she has her tracheostomy site covered, she does have drainage around tracheostomy site. Left arm graft site, currently with an ABD pad over, does have areas of drainage and surrounding erythema. I cannot discern any calf pain, no calf swelling. She does have right arm swelling. Review of Systems Card: Reports: chest pain Resp: Reports: dyspnea GI: Denies: abdominal pain Medications/Allergies Home Medications Medication Instructions Recorded Confirmed Last Taken Type lovastatin 40 mg tablet 60 mg PO DAILY 10/13/19 10/24/21 11/25/19 History metoprolol tartrate 50 mg tablet 50 mg PO BID 11/26/19 10/24/21 11/25/19 History acetaminophen 325 mg tablet 650 mg PO .Q4HR PRN Pain 10/24/21 10/24/21 Unknown History amoxicillin 500 mg-potassium 1 tab PO BID 10/24/21 10/24/21 Unknown History clavulanate 125 mg tablet (Augmentin) chlorhexidine gluconate 0.12 % 15 ml PO .QSHIFT 10/24/21 10/24/21 Unknown History mouthwash cyanocobalamin (vitamin B-12) 1,000 mcg IM .[id number] 10/24/21 10/24/21 Unknown History 1,000 mcg/mL injection solution folic acid 1 mg tablet 1 mg PO DAILY 10/24/21 10/24/21 Unknown History furosemide 40 mg/4 mL oral solution 40 mg PO QAM 10/24/21 10/24/21 Unknown History gabapentin 250 mg/5 mL oral 100 mg PO TID 10/24/21 10/24/21 Unknown History solution (Neurontin) oxycodone 5 mg/5 mL oral solution 2.5 mg feeding tube .Q4HR PRN Pain 10/24/21 10/24/21 Unknown History psyllium 1 packet feeding tube DAILY PRN 10/24/21 10/24/21 Unknown History Constipation ramelteon 8 mg tablet 8 mg PO DAILY PRN Insomnia 10/24/21 10/24/21 Unknown History thiamine HCl (vitamin B1) 100 100 mg PO DAILY 10/24/21 10/24/21 Unknown History mg/mL injection solution Allergies Allergy/AdvReac Type Severity Reaction Status Date / Time codeine Allergy hives Verified 06/18/21 11:10 hydrocodone [From Vicodin] Allergy hives Verified 06/18/21 11:10 PFSH Acute PFSH: Medical History Actinic keratoses COPD (chronic obstructive pulmonary disease) Diabetes History of nonmelanoma skin cancer Hypertension Renal failure Tracheostomy in place Surgical History H/O oral surgery S/P percutaneous endoscopic gastrostomy (PEG) tube placement Family History Other CAD (coronary artery disease) Cancer Diabetes Social History Smoking and tobacco status: never smoked Alcohol intake: never History of recent travel: No Vitals/I&O/Wt Last Vital Signs Temp 98.0 F 10/26/21 04:26 Pulse 120 H 10/26/21 04:26 Resp 18 10/26/21 04:26 BP 128/79 10/26/21 04:26 Pulse Ox 95 10/26/21 04:26 O2 Del Method 10/26/21 04:26 Weight last 48 hrs Weight 51.71 kg Physical Exam Const: COMMON NORMALS: no acute distress and patient oriented x3 HENMT: COMMON NORMALS: normocephalic HEAD & SCALP: normocephalic Neck/C-Spine: COMMON NORMALS: no JVD Resp: COMMON NORMALS: normal respiratory effort, No retractions, No use of accessory muscles and clear to auscultation bilaterally AUSCULTATION: clear to auscultation bilaterally Cardio: COMMON NORMALS: no JVD, regular rate, regular rhythm, S1 normal heart sound present and S2 normal heart sound present RATE: regular rate RHYTHM: regular rhythm HEART SOUNDS: S1 normal heart sound present and S2 normal heart sound present GI: COMMON NORMALS: Normal to inspection, nondistended, normoactive bowel sounds present, Soft to palpation, non-tender, No hepatosplenomegaly present, no masses and no bruits PALPATION: Yes Soft to palpation and Yes No hepatosplenomegaly present Extremity: COMMON NORMALS: capillary refill normal, no clubbing, cyanosis or edema, no calf tenderness and no pedal edema Neuro: COMMON NORMALS: patient oriented x3 Psych: COMMON NORMALS: mental status grossly normal Skin: NARRATIVE SKIN EXAM: Tracheostomy site, does have some drainage from trach site Surgical site left neck, substance slight erythema, slight drainage, packing in place Left arm, graft site, forearm, roughly 8 cm long, surrounding erythema, active drainage PEG tube placement, looks clean and dry Oral cavity, graft site, dark appearing Data : 10/26/21 05:00 10/26/21 05:00 A&P Assessment and plan (1) NSTEMI (non-ST elevated myocardial infarction): Status: Acute (2) Oral cancer: Status: Acute (3) Anemia: Status: Acute Plan NSTEMI -Baseline troponin 557, D-dimer 3.8, EKG no acute ST-T wave changes -Etiology cardiac versus pulmonary embolism -Received therapeutic Lovenox -CT angiogram pending -Cardiac echo gram ordered -Venous ultrasound ordered -Currently denying any chest pain, currently on room air -We will have to monitor troponins, troponins trending, telemetry monitoring -In terms of her goals of care, patient is adamant she does not want to have a coronary angiogram she does not want to have aggressive interventions, she wants to do medical management, discussed risks and benefits of medical management, morbidity and mortality associated, she voiced understanding, all question answered, agreed to proceed -Will need to discuss with cardiology once work-up above comes back -DNR/DNI -Lovenox for DVT prophylaxis Right upper arm swelling, venous ultrasound ordered Elevated D-dimer, immobility after surgery, elevated troponin, work-up as above Creatinine 1.4, CARINE, continue to monitor Acute on chronic anemia -Hemoglobin 11.4 -Has received 3 units PRBC hemoglobin is low 6.6 few days ago -I am quite concerned as etiology of the anemia is unclear -In patients going to receive Lovenox as above - monitor hemoglobin closely, Protonix, Carafate -Stool studies, iron studies Oral cancer/throat cancer -Awaiting records from [facility] -Graft site from left arm? -This graft site, left arm, has signs of drainage, erythema, concern for cellulitis, she is on antibiotics, but continues to have drainage, will place her on broad-spectrum antibiotic therapy -She also has drainage from her tracheostomy site purulent drainage, -She also has drainage from her surgical site in her neck that is packed, antibiotics as above Oral cancer, left lateral tongue, it is dark and does here in the appearing, continue to monitor Patient does have significant mucus plugging, will need to do aggressive oral care, respiratory therapy consult PEG tube in place, will need to call halfway for her PEG tubing schedule I started her on Jevity 10 cc/hr Attestations Medical Necessity Statement*: Patient requires hospitalization, inpatient, greater than 2 midnights, for NSTEMI, surgical site infection, tracheostomy site infection, elevated D-dimer Coding Level of Care 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
[2021-10-26] MEDS: enoxaparin 60 mg/0.6 mL Syringe 50 MG SUBCUT ×2 (06:46→17:23)
--- NOTE | 2021-10-26 07:05 | USCV_ITS ---
Teetee Arango Age: 86 Gender: F : 1935 Exam Date: 10/26/2021 07:20 Ordering Phys: Gustavo Parisi MD Technologist: REMEDIOS [place]am Location[place] [facility] [place] Indication: RUE SWELLING HISTORY: Upper extremity swelling. PROCEDURES: Venous duplex imaging was performed in only the right upper extremity. The following venous structures were evaluated: internal jugular vein, subclavian vein, axillary vein, and brachial veins. In addition, the basilic vein, cephalic vein, radial vein, and ulnar vein. Serial compression, augmentation maneuvers, and spectral Doppler flow evaluation were performed. FINDINGS: The veins of the right upper extremity are readily compressible with normal venous flow dynamics including spontaneous flow, respiratory phasic variation and augmentation. No evidence of deep vein thrombosis or superficial thrombophlebitis in the right upper extremity. Edema seen in Right Arm CONCLUSIONS No evidence of thrombus of the right upper extremity veins. Jeronimo Cortes MD (Electronically Signed) Final Date: 26 October 2021 11:13 S
--- NOTE | 2021-10-26 07:05 | USCV_ITS ---
Teetee Arango Age: 86 Gender: F : 1935 Exam Date: 10/26/2021 07:31 Ordering Phys: Gustavo Parisi MD Technologist: REMEDIOS [place] [facility] [place]ication: BLE SWELLING HISTORY: Lower extremity swelling. PROCEDURES: Venous duplex imaging was performed in bilateral lower extremities. The following venous structures were evaluated: common femoral vein, profunda vein, proximal portion of the greater saphenous vein, superficial femoral vein, and the popliteal vein. In addition, the posterior tibial and peroneal trunk were evaluated. Serial compression, augmentation maneuvers, and spectral Doppler flow evaluation were performed. FINDINGS: No evidence of DVT seen in any vessel visualized at this time. Edema seen in BLE CONCLUSIONS No evidence of right lower extremity DVT. No evidence of left lower extremity DVT. Jeronimo Cortes MD (Electronically Signed) Final Date: 26 October 2021 11:12 S
--- NOTE | 2021-10-26 07:05 | CTR_ITS ---
PROCEDURE INFORMATION: Exam: CT Neck Without Contrast Exam date and time: 10/26/2021 7:57 AM Age: 86 years old Clinical indication: Other: Drainage from trach site; Prior surgery; Surgery type: Trach surgery TECHNIQUE: Imaging protocol: Computed tomography of the neck without contrast. Radiation optimization: All CT scans at this facility use at least one of these dose optimization techniques: automated exposure control; mA and/or kV adjustment per patient size (includes targeted exams where dose is matched to clinical indication); or iterative reconstruction. COMPARISON: [place] [id number] 08/21/2021 12:38 PM RADIATION DOSE METRICS: Total DLP (mGy-cm): 191.65 FINDINGS: Pharynx: Unremarkable. No significant tonsillar enlargement. Larynx: Unremarkable. Epiglottis is normal. Prevertebral and retropharyngeal spaces: Unremarkable. Salivary glands: Normal. Glands are normal in size. The left submandibular gland may be surgically absent. Thyroid: Normal. No enlarged or calcified nodules. Lymph nodes: Unremarkable. No lymphadenopathy. Trachea: Unremarkable tracheostomy site without evidence of surrounding inflammatory changes or fluid collection. Lungs: Imaging findings of pulmonary edema with moderate bilateral pleural effusions. Pneumonia should be excluded clinically. Bones/joints: Degenerative changes of the spine seen. Vasculature: Mild diffuse atherosclerotic disease is present. Soft tissues: Surgical changes in the left tongue and neck noted. No associated inflammatory changes or fluid collection identified. Old fracture deformity of the right clavicle seen. CT/CT neck wo con [id number] IMPRESSION: Unremarkable tracheostomy site without evidence of surrounding inflammatory changes or fluid collection, as clinically questioned.
[2021-10-26 07:11] LABS: INR 0.95 (0.8-1.2)
[2021-10-26 07:13] LABS: Magnesium 1.8 mg/dL (1.7-2.3); Phosphorus 1.7 mg/dL (2.5-4.5)
[2021-10-26 07:21] LABS: Troponin 5 2HR 508.9 ng/L (0-10)
--- NOTE | 2021-10-26 07:40 | PC.PHAR ---
Addendum entered by Idalmis Grijalva 10/26/21 09:12: medications entered are the medications from the pts mar from [facility] that johnathan garcia from [facility] sent Addendum entered by Idalmis Grijalva 10/26/21 08:18: still no med list-called back spoke with johnathan pringle she will fax med list Original Note: called [facility] [phone] spoke to [email or web address] states will fax pts mar
[2021-10-26] MEDS: morphine 4 mg/mL SDV 1 mL 2 MG IVP ×2 (07:43→23:27)
[2021-10-26 07:51] LABS: NT Pro B Type Natriuretic Pept > 70000 pg/mL (0-450)
[2021-10-26 08:04] LABS: Procalcitonin 1.04 ng/mL (0-0.5); Thyroid Stimulating Hormone 9.72 uIU/mL (0.27-4.20); Vitamin B12 820 pg/mL (232-1245)
[2021-10-26 08:06] LABS: Folate Level 18.1 ng/mL (4.8-37.3)
--- NOTE | 2021-10-26 08:12 | PC.NURSE ---
CONTACTED DR. COLLIER FOR MED ORDER CHANGE. UNABLE TO CRUSH 81MG ENTERIC COATED ASPIRIN FOR PEG TUBE ADMINISTRATION. DR. DICKSON GAVE VERBAL ORDER TO DC 81MG EC ASPIRIN. DR. COLLIER GAVE VERBAL ORDER TO ADMINISTER ASPIRIN 325MG PO DAILY.
[2021-10-26 08:15] LABS: C Reactive Protein 114.8 mg/L (0.0-4.9); Iron 21 ug/dL (37-145); Percent Saturation 18.4 % (20-50); Total Iron Binding Capacity 114 mcg/dl; Unsaturated Iron Binding 93 ug/dL (112-347)
[2021-10-26 08:24] LABS: Erythrocyte Sedimentation Rate 65 mm/hr (0-15)
[2021-10-26 08:29] LABS: Ferritin 2381 ng/mL (15-150)
[2021-10-26] MEDS: folic acid 1 mg Tablet PO (08:37)
[2021-10-26] MEDS: sucralfate 1 gm Tablet PO ×4 (08:37→20:49)
[2021-10-26] MEDS: aspirin 325 mg Tablet PO (08:37)
[2021-10-26] MEDS: metoprolol tartrate 50 mg Tablet PO ×2 (08:40→17:23)
[2021-10-26] MEDS: atorvastatin 40 mg Tablet 20 MG PO (08:40)
[2021-10-26] MEDS: pantoprazole 40 mg SDV IVP ×2 (08:41→21:59)
--- NOTE | 2021-10-26 08:41 | ECG_ITS ---
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 Measurements Intervals [place] Rate: 119 P: 51 MT: 159 QRS: 5 QRSD: 78 T: 56 QT: 361 QTc: 509 Interpretive Statements SINUS TACHYCARDIA POSSIBLE ANTERIOR MYOCARDIAL INFARCTION , PROBABLY OLD [30 ms Q WAVE IN V3/V4, OR R < 0.2 mV IN V4] Compared to ECG 10/26/2021 06:06:40 No significant changes Electronically Signed On 10-26-2021 17:51:37 CDT by Jared Gage M.D. [id number]
[2021-10-26] MEDS: gabapentin 100 mg Capsule PEG-TUBE ×3 (08:53→20:49)
[2021-10-26 09:37] LABS: Hematocrit 32.2 % (37.0-47.0); Hemoglobin 10.5 g/dL (11.5-15.3)
--- NOTE | 2021-10-26 10:39 | PC.NURSE ---
DR. BISWAS INSTRUCTED TO START ANTIBIOTICS PRIOR TO GATHERING SECOND BLOOD CULTURE.
[2021-10-26] MEDS: vancomycin 750 MG in sodium chloride 0.9% 250 ML 250 MG IV (10:43)
--- NOTE | 2021-10-26 11:05 | ECG_ITS ---
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 Measurements Intervals [place] Rate: 102 P: 35 NC: 167 QRS: 5 QRSD: 79 T: 24 QT: 345 QTc: 451 Interpretive Statements SINUS TACHYCARDIA POSSIBLE ANTERIOR MYOCARDIAL INFARCTION , PROBABLY OLD [30 ms Q WAVE IN V3/V4, OR R < 0.2 mV IN V4] ABNORMAL RHYTHM ECG Compared to ECG 10/26/2021 08:41:59 No significant changes Electronically Signed On 10-26-2021 17:50:37 CDT by Jared Gage M.D. [id number]
[2021-10-26 11:24] LABS: Lactic Sepsis W/Reflex 1.7 mmol/L (0.5-2.2)
[2021-10-26 11:40] LABS: Troponin 5 6HR 453.1 ng/L (0-10)
[2021-10-26] MEDS: oxyCODONE 5 mg IR Tab/Cap 2.5 MG PEG-TUBE ×3 (12:32→20:49)
[2021-10-26 13:36] LABS: Hematocrit 32.6 % (37.0-47.0); Hemoglobin 10.2 g/dL (11.5-15.3)
--- NOTE | 2021-10-26 13:47 | PC.NUTR ---
Received tube feeding consult and recommend Jevity 1.2 bolus feeds of 310 mls Q6H with flushes of 60 mls before and after feedings - which is similar in kcals and schedule to what she received at [facility]. Details in RD assessment.
--- NOTE | 2021-10-26 14:39 | PM.PN ---
Subjective Subjective: She reports she is feeling somewhat better. She had chest pain earlier, but that improved with pain medication. Vitals/I&O/Wt Last Vital Signs Temp 98.6 F 10/26/21 11:15 Pulse 78 10/26/21 12:00 Resp 20 H 10/26/21 12:32 BP 115/76 10/26/21 11:15 Pulse Ox 93 10/26/21 11:55 O2 Del Method 10/26/21 11:00 10/25/21 10/26/21 10/26/21 22:59 06:59 14:59 Intake Total 250 / 250 Balance 250 / 250 Weight last 48 hrs Weight 60.328 kg Weight 51.71 kg Physical Exam Narrative: Family at bedside. Const: COMMON NORMALS: patient oriented x3 and alert GENERAL APPEARANCE: cooperative and frail appearing ORIENTATION/CONSCIOUSNESS: Yes awake HENMT: OTHER: Dry gangrene at left anterolateral tongue skin flap, with pale discoloration closer to the middle, pink from middle of the tongue posteriorly. Gangrenous appearing area turning downwards towards the base of the tongue. Some maceration lower in the recess. Opening underneath arm packed with iodoform. Neck/C-Spine: COMMON NORMALS: no JVD OTHER: Lateral neck wound with small amount of clear drainage. Minimal secretion covering anterior closing tracheostomy opening. Resp: COMMON NORMALS: normal respiratory effort and clear to auscultation bilaterally AUSCULTATION: clear to auscultation bilaterally Cardio: COMMON NORMALS: no JVD, regular rhythm, S1 normal heart sound present, S2 normal heart sound present and No murmurs present (Cardio) RHYTHM: regular rhythm HEART SOUNDS: S1 normal heart sound present and S2 normal heart sound present GI: COMMON NORMALS: Normal to inspection, nondistended, normoactive bowel sounds present, Soft to palpation and non-tender PALPATION: Yes Soft to palpation Extremity: COMMON NORMALS: no joint enlargement GENERAL: Yes edema (1+ BL foot edema) Neuro: COMMON NORMALS: patient oriented x3 and moves all extremities SENSORIUM/ORIENTATION: Yes alert Skin: OTHER: Right buttock, sacral wounds. Dressing is being applied. Data : 10/26/21 19:36 10/26/21 05:00 Micro: Microbiology 10/26/21 11:02 Blood Culture - Preliminary Blood SPECIMEN COLLECTED 10/26/21 09:20 Blood Culture - Preliminary Blood SPECIMEN COLLECTED A&P Assessment and plan (1) NSTEMI (non-ST elevated myocardial infarction): Status: Acute (2) Oral cancer: Status: Acute (3) Anemia: Status: Acute Plan NSTEMI On and off intermittent chest pain. Nitropaste. Morphine as needed. Continue anticoagulation with Lovenox. Continue aspirin, beta-domingo. TTE without known prior study here, EF 25-30%. Severe global left ventricular hypokinesis. Abnormal septal motion. Upper normal RV size and mildly decreased systolic function. Moderately increased left atrial size. PA pressure estimated at 39 mmHg. Mild to moderate MVR. Limited goals of care, would not want aggressive interventions including coronary angiogram. CT angiogram without PE. Acute systolic CHF: Pulmonary edema, bilateral pleural effusions. Lower extremity edema. Cannot exclude superimposed pneumonia. We will add Lasix. Monitor I&O. Possible pneumonia: Continue Zosyn, vancomycin. Blood cultures pending. Not likely to be able to provide sputum cultures. Rejection of skin graft: With appearance of dark/black/dry gangrene of the distal third of the graft. Pulse could not be dopplered. As per discussion with her ENT, seems there was vascular compromise at some point unfortunately. However, he states that he can expect revascularization occurring after 5-10 days after transplantation and at least living portions of the graft to survive. The remainder may slough off. She is to be seen on 10/31 for reassessment, consideration whether debridement is needed. Has been on Augmentin. Reassessment also of left arm skin flap. Records from [facility] placed in paper chart. Left arm cellulitis: Surrounding skin flap, thin line of necrotic tissue. Empiric antibiotics as above with vancomycin, Zosyn. Per discussion with her ENT, keep dry. No DVT on duplex ultrasound. Elevated D-dimer: Possibly secondary to necrosis of tongue skin flap. No DVT in the left upper extremity or lower extremities. No PE. CKD: Creatinine appears close to baseline. Acute on chronic anemia: Hemoglobin so far without worsening on therapeutic anticoagulation. She and family are not sure what the cause was of recent anemia when she required 3 units transfusion. Hemoccult stool. Oral cancer/throat cancer -Records arrived from [facility] PEG tube in place, she has been experiencing diarrhea with tube feeds. At senior living gets bolus feeding with Isosource. For now continue Jevity. Tube flushes with 200 mL 4 times daily. Imodium. Attestations Medical Necessity Statement*: Continue admission for assessment of management of non-STEMI, acute systolic CHF, possible pneumonia. 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
[2021-10-26] MEDS: piperacillin-tazobactam 3.375 GM in sodium chloride 0.9% (plus) 50 ML IV (16:24)
[2021-10-26] MEDS: acetaminophen 325 mg Tablet 650 MG PO (16:35)
[2021-10-26] MEDS: lanolin oint 7 gm 1 APPLIC TOPICAL (16:58)
[2021-10-26] MEDS: chlorhexidine gluconate 0.12% Btl 473 mL 15 ML MUCOUS MEM (17:23)
--- NOTE | 2021-10-26 17:42 | PC.NURSE ---
Patient arrived to unit via stretcher from ED, minimal c/o pain to chest, VSS, AAOx4 with difficulty speaking from previous surgeries. Tongue has left side graft with black eschar and no pulse found via doppler. Physician notified. All wounds charted and dressing changes performed with wound care orders mirroring NH. Family at bedside, calm/pleasant and appropriate. Patient later placed on some oxygen to help with oxygen saturation during sleeping episodes. Peg tube patent and irrigated with orders of TF started. No BM during this nurses care. Has had good UOP. Performing mouth care multiple times an hour with family educated on how to assist with oral care and neck exercises. NO new events. Will continue to monitor until nursing handoff at shift change.
[2021-10-26 19:42] LABS: Hematocrit 34.9 % (37.0-47.0); Hemoglobin 11.1 g/dL (11.5-15.3)
--- NOTE | 2021-10-26 20:24 | PC.NURSE ---
IV infiltrated to left upper arm. Attempted to obtain a new IV x 3 attempts/2 nurses. Unable to obtain IV. Family requests that we give her a break for a while. 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 Will allow patient to rest and attempt at a later time.
[2021-10-26] MEDS: nitroglycerin 1 gm/inch oint Pkt 0.5 INCH TOPICAL (21:07)
[2021-10-27] VITALS (25 sets, daily range): BP systolic 82–118; BP diastolic 41–90; PULSE 90–118; RESP 13–35; TEMP 37.1–38.1; O2SAT 79–98
--- NOTE | 2021-10-27 00:06 | PC.NURSE ---
Patient crying in pain while doing oral care to mouth. Morphine 2mg given IVP as ordered for severe pain.
[2021-10-27] MEDS: piperacillin-tazobactam 3.375 GM in sodium chloride 0.9% (plus) 50 ML IV ×3 (00:38→16:48)
[2021-10-27 01:51] LABS: Basophils % 0.2 %; Hematocrit 35.6 % (37.0-47.0); Hemoglobin 11.4 g/dL (11.5-15.3); Mean Corpuscular Hemoglobin 30.4 pg (28.0-34.0); Mean Corpuscular Volume 94.9 fl (81-99); Mean Platelet Volume 11.2 fL (7.4-10.4); Monocytes # 0.8 10^3/uL (0.2-0.9); Monocytes % 5.8 %; Neutrophils # 11.18 10^3/uL (1.8-7.7); Nucleated Red Blood Cells % 0 %; Platelet Count 142 10^3/cmm (130-400); Red Blood Count 3.75 10^6/uL (4.1-5.3); Red Cell Distribution Width 18.2 % (12.1-15.1); White Blood Count 14.2 10^3/uL (4.0-10.0)
[2021-10-27 02:07] LABS: Alanine Aminotransferase 38 U/L (0-33); Albumin Level 1.9 g/dL (3.5-5.2); Alkaline Phosphatase 122 U/L (35-105); Anion Gap 14.7 (5-19); Aspartate Amino Transferase 61 U/L (0-32); Blood Urea Nitrogen 37 mg/dL (8-23); Calcium 8.1 mg/dL (8.5-10.5); Carbon Dioxide 25 mmol/L (22-29); Chloride 99 mmol/L (98-107); Globulin 3.7 g/dL (1.3-4.6); Glucose 148 mg/dL (65-115); Osmolality Calculated 289 mOsm/kg (285-295); Potassium 4.7 mmol/L (3.5-5.1); Sodium 134 mmol/L (136-145); Total Bilirubin 0.2 mg/dL (0.15-1.2); Total Protein 5.6 g/dL (6.6-8.7)
[2021-10-27] MEDS: oxyCODONE 5 mg IR Tab/Cap 2.5 MG PEG-TUBE ×3 (02:36→20:11)
[2021-10-27] MEDS: nitroglycerin 1 gm/inch oint Pkt 0.5 INCH TOPICAL ×2 (02:37→20:13)
[2021-10-27] MEDS: acetaminophen 325 mg Tablet 650 MG PO ×2 (02:37→08:52)
--- NOTE | 2021-10-27 02:45 | PC.NURSE ---
Axillary temp 101. Tylenol 650mg given per peg tube for elevated temp. Has not voided since coming onto shift, when asked patient if she needed to urinate she states no. Scanned bladder with bladder scanner, 119mL urine noted in bladder. Will continue to monitor.
--- NOTE | 2021-10-27 05:15 | PC.NURSE ---
Removed Nitro paste, blood pressure 71/56.
[2021-10-27] MEDS: enoxaparin 60 mg/0.6 mL Syringe 50 MG SUBCUT ×2 (05:26→17:30)
[2021-10-27] MEDS: chlorhexidine gluconate 0.12% Btl 473 mL 15 ML MUCOUS MEM (05:27)
[2021-10-27] MEDS: FUROsemide 10 mg/mL SDV 4mL 40 MG IVP (05:31)
--- NOTE | 2021-10-27 07:35 | PC.NURSE ---
Addendum entered by Angelina Schaefer RN 10/27/21 19:30: Patient has had minimal c/o pain throughout shift but is relieved with pain meds per MAR when requested. Patient AAOx4, BP soft and HR elevated a majority of shift. Family at bedside, frequent turns, room clean and clutter free with call light in reach. Peg tube patent with TF running at current goal and flushes. Esparza placed this shift with low UOP. Patient had a Cheeta Nikon completed during shift with results sent to physician. All dressings changed during shift. No needs at this time. No new events. Report given to oncoming nurse at bedside. Original Note: Patient resting in bed, report received bedside, patient resting. Room clean and clutter free. No family at bedside at this time. Patient refusing oral care d/t mouth pain. Patient currently refusing a turn as she is comfortable and would like to rest. Call light is in reach, BP soft with elevated HR. Will monitor throughout shift.
[2021-10-27 08:00] LABS: Hematocrit 28.8 % (37.0-47.0); Hemoglobin 9.2 g/dL (11.5-15.3)
[2021-10-27] MEDS: folic acid 1 mg Tablet PO (08:33)
[2021-10-27] MEDS: sucralfate 1 gm Tablet PO ×4 (08:33→20:12)
[2021-10-27] MEDS: gabapentin 100 mg Capsule PEG-TUBE (08:33)
[2021-10-27] MEDS: aspirin 325 mg Tablet PO (08:33)
[2021-10-27] MEDS: atorvastatin 40 mg Tablet 20 MG PO (08:33)
[2021-10-27] MEDS: silver sulfadiazine cream 1% 50 gm 1 APPLIC TOPICAL (08:53)
[2021-10-27] MEDS: pantoprazole 40 mg SDV IVP ×2 (09:01→21:00)
[2021-10-27 13:29] LABS: Glucose Urine UA Norm (Normal); Protein Urine 3+ (Negative); Urine Appearance Cloudy (CLEAR); Urine Color Yellow (Yellow); pH Urine 5 (5-7)
[2021-10-27 13:30] LABS: Add Urine Microscopic? YES; Bilirubin Urine Neg (Negative); Blood Urine Neg (Negative); Ketones Urine 1+ (Negative); Leukocyte Esterase Urine Trace (Negative); Nitrate Urine Negative (Negative); Urobilinogen Urine 1 mg/dL (Negative)
[2021-10-27 13:34] LABS: Amorphous Sediment Urine 3+ /hpf; Mucus Urine 1+ /hpf
[2021-10-27 13:35] LABS: Bacteria Urine 1+ /hpf
[2021-10-27 13:36] LABS: WBC Urine 0-4 /hpf (0-5)
[2021-10-27 13:37] LABS: Add Urine Culture? No
[2021-10-27 16:38] LABS: Hemoglobin 8.3 g/dL (11.5-15.3)
[2021-10-27 18:41] LABS: Adenovirus Not Detected (NOT DETECT); Chlamydia Pneumoniae Not Detected (NOT DETECT); Coronavirus 229E,HKU1,NL63,OC4 Not Detected (NOT DETECT); Human Metapneumovirus Not Detected (NOT DETECT); Human Rhinovirus/Enterovirus Not Detected (NOT DETECT); Influenza A Not Detected (NOT DETECT); Influenza A H1 Not Detected (NOT DETECT); Influenza A H1-2009 Not Detected (NOT DETECT); Influenza A H3 Not Detected (NOT DETECT); Influenza B Not Detected (NOT DETECT); Mycoplasma Pneumoniae Not Detected (NOT DETECT); Parainfluenza Virus Type 1 Not Detected (NOT DETECT); Parainfluenza Virus Type 2 Not Detected (NOT DETECT); Parainfluenza Virus Type 3 Not Detected (NOT DETECT); Parainfluenza Virus Type 4 Not Detected (NOT DETECT); Respiratory Syncytial Virus A Not Detected (NOT DETECT); Respiratory Syncytial Virus B Not Detected (NOT DETECT); SARS-COV-2 Not Detected (NOT DETECT)
--- NOTE | 2021-10-27 18:47 | XRR_ITS ---
PROCEDURE INFORMATION: Exam: XR Chest Exam date and time: 10/27/2021 7:09 PM Age: 86 years old Clinical indication: Device placement; Picc; TECHNIQUE: Imaging protocol: Radiologic exam of the chest. Views: 1 view. COMPARISON: CR (CHEST, ) 10/26/2021 4:33 AM FINDINGS: Tubes, catheters and devices: Distal aspect of the PICC line projects over the cavoatrial junction. Lungs: Patchy bibasilar and right perihilar opacities are similar to the prior study. Pleural spaces: Bilateral pleural effusions. Heart/Mediastinum: The heart is enlarged. Bones/joints: Unremarkable. XR/XR chest 1V portable [id number] IMPRESSION: 1. Distal aspect of the PICC line projects over the cavoatrial junction. 2. Bilateral pleural effusions and cardiomegaly, consistent with congestive heart failure. 3. Patchy bibasilar and right perihilar opacities are similar to the prior study.
[2021-10-27 19:30] LABS: Hematocrit 28.9 % (37.0-47.0); Hemoglobin 9.1 g/dL (11.5-15.3)
[2021-10-27] MEDS: vancomycin 750 MG in sodium chloride 0.9% 250 ML 250 MG IV (20:13)
--- NOTE | 2021-10-27 20:41 | PM.PN ---
Subjective Subjective: Denies any additional change in symptoms today. No chest pain. No trouble breathing. Blood pressure noted soft. Difficult IV access requiring multiple needle sticks. No diarrhea. Vitals/I&O/Wt Last Vital Signs Temp 98.9 F 10/27/21 11:00 Pulse 107 H 10/27/21 17:00 Resp 20 H 10/27/21 20:11 BP 118/71 10/27/21 17:00 Pulse Ox 79 L 10/27/21 17:00 O2 Del Method 10/27/21 06:00 O2 Flow Rate 1 10/27/21 07:00 10/27/21 10/27/21 10/27/21 06:59 14:59 22:59 Intake Total 725 / 1565.000 310 / 310 800 / 1110 Output Total 0 / 0 0 / 0 225 / 225 Balance 725 / 1565.000 310 / 310 575 / 885 Weight last 48 hrs Weight 61.961 kg Weight 60.328 kg Weight 51.71 kg Physical Exam Narrative: Family at bedside. Const: COMMON NORMALS: patient oriented x3 and alert GENERAL APPEARANCE: cooperative and frail appearing ORIENTATION/CONSCIOUSNESS: Yes awake HENMT: COMMON NORMALS: oropharynx normal OTHER: Dry gangrene at left anterolateral tongue skin flap, with pale discoloration closer to the middle, pink from middle of the tongue posteriorly. Gangrenous appearing area turning downwards towards the base of the tongue. Some maceration lower in the recess. Opening underneath arm packed with iodoform. Neck/C-Spine: COMMON NORMALS: no JVD OTHER: Lateral neck wound with small amount of clear drainage. Minimal secretion covering anterior closing tracheostomy opening. Resp: COMMON NORMALS: normal respiratory effort and clear to auscultation bilaterally AUSCULTATION: clear to auscultation bilaterally Cardio: COMMON NORMALS: no JVD, regular rhythm, S1 normal heart sound present, S2 normal heart sound present and No murmurs present (Cardio) RHYTHM: regular rhythm HEART SOUNDS: S1 normal heart sound present and S2 normal heart sound present GI: COMMON NORMALS: Normal to inspection, nondistended, normoactive bowel sounds present, Soft to palpation and non-tender PALPATION: Yes Soft to palpation Extremity: COMMON NORMALS: no joint enlargement and no pedal edema GENERAL: Yes edema (1+ BL foot edema) Neuro: COMMON NORMALS: patient oriented x3 and moves all extremities SENSORIUM/ORIENTATION: Yes alert Skin: COMMON NORMALS: no rashes or lesions noted GENERAL SKIN EXAM: no rashes or lesions noted OTHER: Left upper extremity wound with strip of necrotic/black tissue/eschar as expected, however, also with surrounding cellulitis, additionally open wound more distally at the distal forearm closer to the wrist with tendon exposure. Right buttock, sacral wounds. Urinary Catheter Management: Esparza: Cath Placed During This Visit: yes Reason for Continuing Indwelling Catheter: Acute Urinary Retention or Obstruction Urinary Catheter Date of Insertion: 10/27/21 Urinary Catheter Time of Insertion: 12:59 Data : 10/27/21 19:23 10/27/21 01:41 Micro: Microbiology 10/26/21 11:02 Blood Culture - Preliminary Blood NEGATIVE TO DATE 10/26/21 09:20 Blood Culture - Preliminary Blood NEGATIVE TO DATE A&P Assessment and plan (1) NSTEMI (non-ST elevated myocardial infarction): Status: Acute (2) Oral cancer: Status: Acute (3) Anemia: Status: Acute Plan Hypotension: Low blood pressure this morning. Lasix, metoprolol held. Gabapentin held. Noted low albumin given 25 g 25% albumin with improvement in blood pressure. On reassessment not fluid responsive. Serum cortisol checked and appropriately elevated. Blood pressure somewhat better 118/71. Continue to monitor in ICU for now. Difficult IV access: With lost multiple IVs, PICC line placed. Urine retention: [place] like she needed to void today, however, only voided about 2:50 100 mL on bladder scan. Esparza placed. UA not suggestive of UTI. NSTEMI: Continue anticoagulation for today. On and off intermittent chest pain. Nitropaste. Morphine as needed. Continue anticoagulation with Lovenox. Continue aspirin, beta-domingo. TTE without known prior study here, EF 25-30%. Severe global left ventricular hypokinesis. Abnormal septal motion. Upper normal RV size and mildly decreased systolic function. Moderately increased left atrial size. PA pressure estimated at 39 mmHg. Mild to moderate MVR. Limited goals of care, would not want aggressive interventions including coronary angiogram. CT angiogram without PE. Acute systolic CHF: Pulmonary edema, bilateral pleural effusions. Lower extremity edema. Cannot exclude superimposed pneumonia. Resume Lasix when blood pressure improves. Monitor I&O. Possible pneumonia: Continue Zosyn, vancomycin. Blood cultures pending. Not likely to be able to provide sputum cultures. Rejection of skin graft: With appearance of dark/black/dry gangrene of the distal third of the graft. Pulse could not be dopplered. As per discussion with her ENT, seems there was vascular compromise at some point unfortunately. However, he states that he can expect revascularization occurring after 5-10 days after transplantation and at least living portions of the graft to survive. The remainder may slough off. She is to be seen on 10/31 for reassessment, consideration whether debridement is needed. Has been on Augmentin. Reassessment also of left arm skin flap. Records from [facility] placed in paper chart. Left arm cellulitis: Surrounding skin flap, thin line of necrotic tissue. Empiric antibiotics as above with vancomycin, Zosyn. Per discussion with her ENT, keep dry. On area of tendon exposure apply Vaseline soaked gauze. No DVT on duplex ultrasound. Elevated D-dimer: Possibly secondary to necrosis of tongue skin flap. No DVT in the left upper extremity or lower extremities. No PE. CKD: Creatinine appears close to baseline. Acute on chronic anemia: Hemoglobin so far without worsening on therapeutic anticoagulation. She and family are not sure what the cause was of recent anemia when she required 3 units transfusion. Hemoccult stool. Oral cancer/throat cancer -Records arrived from [facility] PEG tube in place, she has been experiencing diarrhea with tube feeds. At [facility] gets bolus feeding with Isosource. For now continue Jevity. Tube flushes with 200 mL 4 times daily. Imodium. Attestations Medical Necessity Statement*: Continue admission for assessment management of her NSTEMI, hypotension, possible pneumonia, cellulitis [employer] graft, wound with tendon exposure, additional comorbidities as above. 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
[2021-10-28] VITALS (28 sets, daily range): BP systolic 93–131; BP diastolic 62–93; PULSE 84–143; RESP 14–30; TEMP 36.9–37.2; O2SAT 90–100
[2021-10-28] MEDS: piperacillin-tazobactam 3.375 GM in sodium chloride 0.9% (plus) 50 ML IV ×3 (00:09→17:24)
[2021-10-28 01:32] LABS: Hematocrit 28.5 % (37.0-47.0); Hemoglobin 9.1 g/dL (11.5-15.3)
--- NOTE | 2021-10-28 03:51 | ECG_ITS ---
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 Measurements Intervals [place] Rate: 143 P: LA: QRS: -25 QRSD: 140 T: 23 QT: 311 QTc: 481 Interpretive Statements ATRIAL FIBRILLATION WITH RAPID VENTRICULAR RESPONSE RIGHT BUNDLE BRANCH BLOCK [120+ ms QRS DURATION, UPRIGHT V1, 40+ ms S IN I/aVL/V4/V5/V6] POSSIBLE ANTERIOR MYOCARDIAL INFARCTION , PROBABLY OLD [30 ms Q WAVE IN V3/V4, OR R < 0.2 mV IN V4] Compared to ECG 10/26/2021 11:05:18 Right bundle-branch block now present Sinus tachycardia no longer present Myocardial infarct finding still present Electronically Signed On 10-30-2021 7:22:46 CDT by Yudi Falcon M.D. [id number]
--- NOTE | 2021-10-28 04:06 | PC.NURSE ---
Patient HR 140s. Dr. Parisi notified, EKG reveals a-fib with RVR. Per MD, start on amiodarone gtt, with no bolus (per MD), levophed drip ordered to maintain pressure if needed.
[2021-10-28] MEDS: enoxaparin 60 mg/0.6 mL Syringe 50 MG SUBCUT ×2 (05:50→17:25)
[2021-10-28 07:25] LABS: Basophils % 0.2 %; Hematocrit 28.8 % (37.0-47.0); Hemoglobin 8.8 g/dL (11.5-15.3); Lymphocytes # 1.6 10^3/uL (0.8-4.8); Lymphocytes % 16.3 %; Mean Corpuscular HGB Conc 30.6 g/dL (30.0-36.0); Mean Corpuscular Hemoglobin 29.6 pg (28.0-34.0); Mean Platelet Volume 11.8 fL (7.4-10.4); Monocytes # 0.4 10^3/uL (0.2-0.9); Monocytes % 3.7 %; Neutrophils # 7.52 10^3/uL (1.8-7.7); Neutrophils % 78.8 %; Nucleated Red Blood Cells % 0 %; Platelet Count 144 10^3/cmm (130-400); Red Blood Count 2.97 10^6/uL (4.1-5.3); Red Cell Distribution Width 18.4 % (12.1-15.1); White Blood Count 9.6 10^3/uL (4.0-10.0)
[2021-10-28 07:47] LABS: Alanine Aminotransferase 27 U/L (0-33); Albumin Level 2.3 g/dL (3.5-5.2); Alkaline Phosphatase 135 U/L (35-105); Aspartate Amino Transferase 29 U/L (0-32); Blood Urea Nitrogen 46 mg/dL (8-23); Carbon Dioxide 22 mmol/L (22-29); Chloride 96 mmol/L (98-107); Glucose 194 mg/dL (65-115); Osmolality Calculated 289 mOsm/kg (285-295); Sodium 131 mmol/L (136-145); Total Bilirubin 0.3 mg/dL (0.15-1.2); Total Protein 5.3 g/dL (6.6-8.7)
[2021-10-28 07:55] LABS: Anion Gap 18.5 (5-19); Potassium 5.5 mmol/L (3.5-5.1)
[2021-10-28] MEDS: folic acid 1 mg Tablet PO (08:31)
[2021-10-28] MEDS: atorvastatin 40 mg Tablet 20 MG PO (08:31)
[2021-10-28] MEDS: aspirin 325 mg Tablet PO (08:31)
[2021-10-28] MEDS: sucralfate 1 gm Tablet PO ×4 (08:31→21:24)
[2021-10-28] MEDS: pantoprazole 40 mg SDV IVP ×2 (08:32→21:24)
[2021-10-28] MEDS: silver sulfadiazine cream 1% 50 gm 1 APPLIC TOPICAL (08:33)
[2021-10-28] MEDS: oxyCODONE 5 mg IR Tab/Cap 2.5 MG PEG-TUBE ×3 (12:25→23:20)
--- NOTE | 2021-10-28 13:00 | P.PN_ITS ---
Subjective Subjective: She reports that she is doing well at this time: Slightly better today. She has been coughing, feeling congested, but not coughing up much. Denies any chest pain or pressure. Does not have any trouble breathing. Vitals/I&O/Wt Last Vital Signs Temp 98.8 F 10/28/21 07:30 Pulse 106 H 10/28/21 08:00 Resp 19 H 10/28/21 12:25 BP 121/72 10/28/21 08:00 Pulse Ox 93 10/28/21 12:25 O2 Del Method 10/27/21 06:00 O2 Flow Rate 1 10/27/21 07:00 10/27/21 10/28/21 10/28/21 22:59 06:59 14:59 Intake Total 1380 / 1690 390 / 2080 Output Total 225 / 225 Balance 1155 / 1465 390 / 1855 Weight last 48 hrs Weight 61.961 kg Physical Exam Narrative: Daughter at bedside. Const: COMMON NORMALS: patient oriented x3 and alert GENERAL APPEARANCE: cooperative and frail appearing ORIENTATION/CONSCIOUSNESS: Yes awake HENMT: COMMON NORMALS: oropharynx normal OTHER: Dry gangrene at left anterolateral tongue skin flap, with pale discoloration closer to the middle, pink from middle of the tongue posteriorly. Gangrenous appearing area turning downwards towards the base of the tongue. Some maceration lower in the recess. Opening underneath arm packed with iodoform. Neck/C-Spine: COMMON NORMALS: no JVD OTHER: Lateral neck wound with small amount of clear drainage. Minimal secretion covering anterior closing tracheostomy opening. Resp: COMMON NORMALS: normal respiratory effort AUSCULTATION: rhonchi Cardio: COMMON NORMALS: no JVD, regular rhythm, S1 normal heart sound present, S2 normal heart sound present and No murmurs present (Cardio) RHYTHM: regular rhythm HEART SOUNDS: S1 normal heart sound present and S2 normal heart sound present GI: COMMON NORMALS: Normal to inspection, nondistended, normoactive bowel sounds present, Soft to palpation and non-tender PALPATION: Yes Soft to palpation Extremity: COMMON NORMALS: no joint enlargement and no pedal edema GENERAL: Yes edema (1+ BL foot edema) Neuro: COMMON NORMALS: patient oriented x3 and moves all extremities SENSORIUM/ORIENTATION: Yes alert Skin: COMMON NORMALS: no rashes or lesions noted GENERAL SKIN EXAM: no rashes or lesions noted OTHER: Left upper extremity wound with strip of necrotic/black tissue/eschar as expected, however, also with surrounding cellulitis, additionally open wound more distally at the distal forearm closer to the wrist with tendon exposure. Right buttock, sacral wounds. Urinary Catheter Management: Esparza: Cath Placed During This Visit: yes Reason for Continuing Indwelling Catheter: Acute Urinary Retention or Obst ruction Urinary Catheter Date of Insertion: 10/27/21 Urinary Catheter Time of Insertion: 12:59 Data : 10/28/21 07:06 10/28/21 07:06 Micro: Microbiology 10/26/21 11:02 Blood Culture - Preliminary Blood NEGATIVE TO DATE 10/26/21 09:20 Blood Culture - Preliminary Blood NEGATIVE TO DATE A&P Assessment and plan (1) NSTEMI (non-ST elevated myocardial infarction): Status: Acute (2) Oral cancer: Status: Acute (3) Anemia: Status: Acute Plan Pneumonia: Add flutter valve. Continue Zosyn, vancomycin. Blood cultures pending. Not likely to be able to provide sputum cultures. Acute systolic CHF: With blood pressure slightly better today, will give Lasix IV 20 mg x 1. Also decrease PEG tube flushes to 100 mL 3 times daily. Pulmonary edema, bilateral pleural effusions. Lower extremity edema. Resume Lasix when blood pressure improves. Monitor I&O. Hypotension: Continue to hold metoprolol for now. Resume once blood pressure improves, and tolerating diuretic. Improved, although blood pressure still intermittently soft. Gabapentin held. Noted low albumin, responded well to 25 g 25% albumin with improvement in blood pressure. On reassessment not fluid responsive. Serum cortisol checked and appropriately elevated. Hyperkalemia: Change tube feeds to Nepro. Follow-up potassium level this afternoon. Difficult IV access: PICC line placed 10/27 Urine retention: [place] like she needed to void today, however, only voided about 50 mL on bladder scan. Esparza placed. UA not suggestive of UTI. NSTEMI: Continue anticoagulation for today. On and off intermittent chest pain. Nitropaste. Morphine as needed. Continue anticoagulation with Lovenox. Continue aspirin, beta-domingo. TTE without known prior study here, EF 25-30%. Severe global left ventricular hypokinesis. Abnormal septal motion. Upper normal RV size and mildly decreased systolic function. Moderately increased left atrial size. PA pressure estimated at 39 mmHg. Mild to moderate MVR. Limited goals of care, would not want aggressive interventions including coronary angiogram. CT angiogram without PE. Rejection of skin graft: With appearance of dark/black/dry gangrene of the distal third of the graft. Pulse could not be dopplered. As per discussion with her ENT, seems there was vascular compromise at some point unfortunately. However, he states that he can expect revascularization occurring after 5-10 days after transplantation and at least living portions of the graft to survive. The remainder may slough off. She is to be seen on 10/31 for reassessment, consideration whether debridement is needed. Has been on Augmentin. Reassessment also of left arm skin flap. Records from [facility] placed in paper chart. Left arm cellulitis: Surrounding skin flap, thin line of necrotic tissue. Empiric antibiotics as above with vancomycin, Zosyn. Per discussion with her ENT, keep dry. On area of tendon exposure apply Vaseline soaked gauze. No DVT on duplex ultrasound. Elevated D-dimer: Possibly secondary to necrosis of tongue skin flap. No DVT in the left upper extremity or lower extremities. No PE. CKD: Creatinine appears close to baseline. Acute on chronic anemia: Hemoglobin so far without worsening on therapeutic anticoagulation. She and family are not sure what the cause was of recent anemia when she required 3 units transfusion. Hemoccult stool. Oral cancer/throat cancer -Records arrived from [facility] PEG tube in place, she has been experiencing diarrhea with tube feeds. At senior care gets bolus feeding with Isosource 1.5 250mL boluses 4 times a day. Change to Nepro due to hyperkalemia. Imodium as needed. Attestations Medical Necessity Statement*: Continue admission for assessment management of pneumonia, acute systolic CHF complicated by hypotension, after NSTEMI, left arm cellulitis, additional comorbidities as above. Coding Level of Care Code Acute Line Crewman for [facility] Diagnoses NSTEMI (non-ST elevated myocardial infarction) I21.4 Oral cancer C06.9 Anemia D64.9
[2021-10-28] MEDS: FUROsemide 10 mg/mL SDV 2mL 20 MG IVP (13:24)
[2021-10-28] MEDS: guaiFENesin 600 mg Tablet PO ×2 (13:24→17:25)
[2021-10-28 17:08] LABS: Potassium 5.4 mmol/L (3.5-5.1)
[2021-10-28] MEDS: chlorhexidine gluconate 0.12% Btl 473 mL 15 ML MUCOUS MEM (18:15)
[2021-10-28] MEDS: HYDROmorphone 1 mg/mL INJ 1 mL 0.5 MG IVP (18:47)
[2021-10-28] MEDS: metoprolol tartrate 25 mg Tablet PEG-TUBE (21:25)
[2021-10-29] VITALS (28 sets, daily range): BP systolic 98–154; BP diastolic 57–98; PULSE 77–89; RESP 13–31; TEMP 36.2–37.1; O2SAT 91–96
[2021-10-29] MEDS: piperacillin-tazobactam 3.375 GM in sodium chloride 0.9% (plus) 50 ML IV ×2 (00:04→10:13)
[2021-10-29] MEDS: HYDROmorphone 1 mg/mL INJ 1 mL 0.5 MG IVP ×2 (03:28→22:34)
[2021-10-29] MEDS: oxyCODONE 5 mg IR Tab/Cap 2.5 MG PEG-TUBE ×2 (04:56→20:32)
[2021-10-29] MEDS: enoxaparin 60 mg/0.6 mL Syringe 50 MG SUBCUT (05:03)
[2021-10-29] MEDS: simethicone 80 mg Chew PO ×2 (05:38→20:32)
--- NOTE | 2021-10-29 07:00 | PC.NURSE ---
Bedside report completed with LINDA Medina
[2021-10-29 07:31] LABS: Basophils % 0.2 %; Hematocrit 29.2 % (37.0-47.0); Hemoglobin 9.2 g/dL (11.5-15.3); Lymphocytes # 2.4 10^3/uL (0.8-4.8); Lymphocytes % 24.3 %; Mean Corpuscular HGB Conc 31.5 g/dL (30.0-36.0); Mean Corpuscular Hemoglobin 30.5 pg (28.0-34.0); Mean Corpuscular Volume 96.7 fl (81-99); Mean Platelet Volume 12.1 fL (7.4-10.4); Monocytes # 0.4 10^3/uL (0.2-0.9); Monocytes % 3.8 %; Neutrophils # 7.06 10^3/uL (1.8-7.7); Neutrophils % 70.7 %; Nucleated Red Blood Cells % 0.3 %; Platelet Count 145 10^3/cmm (130-400); Red Blood Count 3.02 10^6/uL (4.1-5.3); Red Cell Distribution Width 18.1 % (12.1-15.1)
[2021-10-29 07:55] LABS: Alanine Aminotransferase 22 U/L (0-33); Albumin Level 1.8 g/dL (3.5-5.2); Alkaline Phosphatase 132 U/L (35-105); Aspartate Amino Transferase 20 U/L (0-32); Blood Urea Nitrogen 53 mg/dL (8-23); Calcium 7.7 mg/dL (8.5-10.5); Carbon Dioxide 21 mmol/L (22-29); Chloride 93 mmol/L (98-107); Glucose 185 mg/dL (65-115); Osmolality Calculated 281 mOsm/kg (285-295); Sodium 126 mmol/L (136-145); Total Bilirubin 0.2 mg/dL (0.15-1.2); Total Protein 5.8 g/dL (6.6-8.7)
[2021-10-29 07:56] LABS: Vancomycin Trough 14.2 ug/mL (10-15)
[2021-10-29 08:17] LABS: Anion Gap 17.8 (5-19); Potassium 5.8 mmol/L (3.5-5.1)
--- NOTE | 2021-10-29 10:00 | PC.NURSE ---
Medication administration delay related to critical care of other patient.
--- NOTE | 2021-10-29 10:09 | PC.SOCIAL ---
IMM Update pg 2 of IMM updated and reviewed w/ patient and her nephew. Copy initialed, dated and placed in chart.
[2021-10-29] MEDS: vancomycin 750 MG in sodium chloride 0.9% 250 ML 250 MG IV (10:12)
[2021-10-29] MEDS: pantoprazole 40 mg SDV IVP ×2 (10:13→22:27)
[2021-10-29] MEDS: sucralfate 1 gm Tablet PO ×4 (10:14→20:31)
[2021-10-29] MEDS: aspirin 325 mg Tablet PO (10:14)
[2021-10-29] MEDS: amiodarone 200 mg Tablet 400 MG PEG-TUBE (10:14)
[2021-10-29] MEDS: guaiFENesin 600 mg Tablet PO ×2 (10:15→20:32)
[2021-10-29] MEDS: folic acid 1 mg Tablet PO (10:15)
[2021-10-29] MEDS: silver sulfadiazine cream 1% 50 gm 1 APPLIC TOPICAL (10:15)
[2021-10-29] MEDS: atorvastatin 40 mg Tablet 20 MG PO (10:15)
[2021-10-29] MEDS: metoprolol tartrate 25 mg Tablet PEG-TUBE ×2 (10:25→20:43)
--- NOTE | 2021-10-29 13:30 | P.PN_ITS ---
Subjective Subjective: Patient is noted to be extremely uncomfortable today. She is in pain. Her kidney function continues to worsen, creatinine is now at 2.8. Urine output at 50 mL over last 24 hours. Last fever on October 27. Flap over her tongue and her graft site over the left forearm looks poorly perfused. Also developing hyperkalemia today at 5.8. Na dropping at 126. Medications: Reviewed: Yes Vitals/I&O/Wt Last Vital Signs Temp 98.8 F 10/29/21 04:00 Pulse 81 10/29/21 09:03 Resp 24 H 10/29/21 04:56 BP 126/70 10/29/21 04:00 Pulse Ox 95 10/29/21 09:03 O2 Del Method 10/29/21 09:03 O2 Flow Rate 1 10/29/21 09:03 10/28/21 10/29/21 10/29/21 22:59 06:59 14:59 Intake Total 1027.000 / 1077.000 810 / 1887.000 250 / 250 Output Total 50 / 50 Balance 1027.000 / 1077.000 760 / 1837.000 250 / 250 Physical Exam Narrative: General: Awake alert x3. Speech is somewhat slurred due to recent tongue graft. Patient is extremely uncomfortable and in pain. HEENT: PERRLA, pupils bilaterally equal and reactive, tongue graft over left side appears dark in color, appears to be gangrenous. Chest: Bilateral coarse crackles to auscultation CVS: S1-S2 regular, no murmurs, no tachycardia, no gallops, no rubs Abdomen: Soft, nontender, PEG tube in situ Neuro: No focal motor deficits, dysarthria due to recent tongue surgery. Extremities: Edema bilateral lower extremities Urinary Catheter Management: Esparza: Cath Placed During This Visit: yes Reason for Continuing Indwelling Catheter: Accurate Measurement of Urinary Output in Critically Ill Patients Urinary Catheter Date of Insertion: 10/27/21 Urinary Catheter Time of Insertion: 12:59 Data : 10/29/21 07:07 10/29/21 07:07 Micro: Microbiology 10/28/21 23:14 Stool Lactoferrin - Final Stool C.difficile Toxin B Gene (PCR) - Final Occult Blood (FIT) - Final A&P Assessment and plan (1) NSTEMI (non-ST elevated myocardial infarction): Status: Acute (2) Oral cancer: Status: Acute (3) Anemia: Status: Acute (4) Multiorgan failure: Status: Acute (5) Hypoxia: Status: Acute (6) Acute renal failure: Status: Acute (7) Hyperkalemia: Status: Acute (8) Hyponatremia: Status: Acute (9) Congestive heart failure: Status: Acute Plan 86-year-old lady with head and neck cancer underwent palliative resection and skin graft of the floor of the left side of the mouth and left side tongue from left arm by ENT Dr. Wilde at [facility] then discharged to local custodial admitted at [facility] on October 26 with NSTEMI, acute on chronic anemia, cellulitis over her graft harvest site and likely gangrene and rejection of the graft over her tongue with noted darkening. She was noted to have multiple wounds over her neck from recent tracheostomy, multiple wounds on her sacrum and buttock and anteriorly on the upper thighs. She also has a PEG and is otherwise PEG dependent with n.p.o. status. During the hospital stay she has been noted to have multiorgan failure. She had an NSTEMI, as evidenced by elevated troponins, echocardiogram showed an EF of 25%. She is not known to have any pertinent cardiac history in the past. As a result of cardiomyopathy, likely ischemic, she is also developed systolic heart failure with signs of CHF. Consideration also for pneumonia given bilateral chest infiltrates, noted coughing episodes and new oxygen requirement. Aspiration is certainly a possibility given recent tracheostomy and inability to take any p.o. intake, increased secretions in the mouth. Hospital course has also been complicated by development of acute renal failure which is getting progressively worse with creatinine at 2.8 today. Her urine output is 50 cc over the last 24 hours. Additionally developing complications of hyponatremia and hyperkalemia likely as a result of her kidney failure. She has declined aggressive interventions including coronary angiogra m, declined defibrillator, declined dialysis. She declines transfer to [facility] in [place]. She is malnourished. She feels poorly, is in pain and is extremely uncomfortable. She tells me that she would like to transition all measures to palliative only and maximize comfort in her remaining time. She states that she understands that without above interventions she is likely to in the next few days. She states that she and her decided a long time ago that should it come to the stage their goal would be to be comfortable. She has 3 children, 2 daughters and a son who are in the room with her today. Given continued worsening, patient has made the decision to transition to hosp ice care. She would like to return home if possible, however would be open to going to custodial if family unable to be with her in the home. In keeping with her change in goals of care, I will keep only essential medications such as metoprolol, dressing changes, local antibiotics, directed hyperkalemia care on at this time. She is alert awake and oriented at this time and able to communicate her wishes. Patient's decision does seem appropriate in keeping with her overall poor clinical status. CODE STATUS DNR. Considering transition to hospice care. Attestations Medical Necessity Statement*: Transition to hospice care in view of progressive multiorgan failure. Critical Care Time: The high probability of a clinically significant, sudden or life threatening deterioration of the patient's [cardiac, respiratory,oncologic,Infectious,renal] system(s) required my full and direct attention, intervention and personal management. The critical care time is as shown. This time is in addition to time spent performing any reported procedures but includes the following: [x] Data and vital sign review and interpretation [x] Patient assessment, examination and intervention [x] Documentation [x] Medication orders and management Critical Care Time (min): 45 Coding Level of Care Code Acute Muffler Installer for [facility] Diagnoses NSTEMI (non-ST elevated myocardial infarction) I21.4 Oral cancer C06.9 Anemia D64.9 Multiorgan failure Hypoxia R09.02 Acute renal failure N17.9 Hyperkalemia E87.5 Hyponatremia E87.1 Congestive heart failure I50.9
--- NOTE | 2021-10-29 19:05 | PC.NURSE ---
Bedside report completed with LINDA Medina
--- NOTE | 2021-10-29 19:06 | PC.NURSE ---
Shift Note: pt rested in bed throughout shift. Family , at bedside, attentive and supportive. Grand daughter bathed pt with this nurse's help. Pt seems to be in good spirits, made the decision to go home on hospice. Hospice has been to room and visited with pt and family. She remains in sinus rhythm. She does get choked and coughs when HOB layed flat for turns. Suctioning helps. All wounds cleansed and re dressed today. Oral care provided multiple times throughout shift. She has pitting edema on all extremities. PICC line patent with good blood flood. Oliguria noted, only 20ml output this sift. BM today. Frequent safety and comfort rounds continue. Orders and/or nursing care completed as indicated. Patient monitored for response to intervention and treatment(s). Education provided includes hospice, prognosis, plan of care, Sucralfate. Patient and/or metals sales representative verbalized understanding of plan of care, Hospice, and medications. Will continue to monitor.
[2021-10-29] MEDS: loperamide 2 mg Capsule PO (22:27)
[2021-10-30] VITALS (24 sets, daily range): BP systolic 82–168; BP diastolic 58–102; PULSE 66–96; RESP 7–24; TEMP 36.3–36.7; O2SAT 85–100
--- NOTE | 2021-10-30 08:20 | P.PN_ITS ---
Subjective Subjective: Patient slept through the night overnight. She appears comfortable. Sleeping right now at the time of exam. Morning labs were canceled as patient has made the decision to transition to hospice. Family has made arrangements to be at home with her so that she can be on hospice. Medications have been minimized to pain and anxiety medication only at this time. Medications: Reviewed: Yes Vitals/I&O/Wt Last Vital Signs Temp 97.4 F L 10/30/21 04:00 Pulse 79 10/30/21 04:00 Resp 21 H 10/30/21 04:00 BP 131/59 10/30/21 04:00 Pulse Ox 94 10/30/21 04:00 O2 Del Method 10/29/21 18:00 O2 Flow Rate 2 10/29/21 15:00 10/29/21 10/30/21 10/30/21 22:59 06:59 14:59 Intake Total 628 / 918 567 / 1485 Output Total 50 / 70 Balance 608 / 898 517 / 1415 Physical Exam Narrative: Not examined today to allow for patient comfort. Patient is asleep, comfortable. Talked to family earlier this morning. Urinary Catheter Management: Esparza: Cath Placed During This Visit: yes Reason for Continuing Indwelling Catheter: Accurate Measurement of Urinary Output in Critically Ill Patients Urinary Catheter Date of Insertion: 10/27/21 Urinary Catheter Time of Insertion: 12:59 Data : 10/29/21 07:07 10/29/21 07:07 Micro: Microbiology 10/28/21 23:14 Stool Lactoferrin - Final Stool C.difficile Toxin B Gene (PCR) - Final Occult Blood (FIT) - Final A&P Assessment and plan (1) NSTEMI (non-ST elevated myocardial infarction): Status: Acute (2) Oral cancer: Status: Acute (3) Anemia: Status: Acute (4) Multiorgan failure: Status: Acute (5) Hypoxia: Status: Acute (6) Acute renal failure: Status: Acute (7) Hyperkalemia: Status: Acute (8) Hyponatremia: Status: Acute (9) Congestive heart failure: Status: Acute Plan 86-year-old lady with head and neck cancer underwent palliative resection and skin graft of the floor of the left side of the mouth and left side tongue from left arm by ENT Dr. Wilde at [facility] 09/28, then discharged to local long term admitted at [facility] on October 26 with NSTEMI, acute on chronic anemia, cellulitis over her graft harvest site and likely gangrene and rejection of the graft over her tongue with noted darkening. She was noted to have multiple wounds over her neck from recent tracheostomy, multiple wounds on her sacrum and buttock and anteriorly on the upper thighs. She also has a PEG and is otherwise PEG dependent with n.p.o. status. During the hospital stay she has been noted to have multiorgan failure. She had an NSTEMI, as evidenced by elevated troponins, echocardiogram showed an EF of 25%. She is not known to have any pertinent cardiac history in the past. As a result of cardiomyopathy, likely ischemic, she is also developed systolic heart failure with signs of CHF. Consideration also for pneumonia given bilateral chest infiltrates, noted coughing episodes and new oxygen requirement. Aspiration is certainly a possibility given recent tracheostomy and inability to take any p.o. intake, increased secretions in the mouth. Hospital course has also been complicated by development of acute renal failure which is getting progressively worse with creatinine at 2.8 today. Her urine output is 50 cc over the last 24 hours. Additionally developing compli cations of hyponatremia and hyperkalemia likely as a result of her kidney failure. She has declined aggressive interventions including coronary angiogram, declined defibrillator, declined dialysis. She declines transfer to [facility] in [place]. She is malnourished. She feels poorly, is in pain and is extremely uncomfortable. She tells me that she would like to transition all measures to palliative only and maximize comfort in her remaining time. She states that she understands that without above interventions she is likely to in the next few days. She states that she and her decided a long time ago that should it come to the stage their goal would be to be comfortable. She has 3 children, 2 daughters and a son who are in the room with her today. Given continued worsening, patient has made the decision to transition to hospice care. She would like to return home if possible, however would be open to going to long term if family unable to be with her in the home. In keeping with her change in goals of care, I will keep only essential medications such as metoprolol, dressing changes, local antibiotics, directed hyperkalemia care on at this time. She is alert awake and oriented at this time and able to communicate her wishes. Patient's decision does seem appropriate in keeping with her overall poor clinical status. Patient has made the decision to transition to hospice care and wishes to return home with family for her remaining time. Our goal at this present time is to maximize patient comfort. Stop all labs going forward. Pain is currently well controlled on oxycodone and iv hydrocodone every 4h as needed. We will additionally addAtivan for anxiety. Attestations Medical Necessity Statement*: Transition to hospice care. Awaiting arrangement of hospice at home prior to discharge. Plan is to return home with family. Coding Level of Care Code Acute Acetone Button Paster for [facility] Fwd Diagnoses NSTEMI (non-ST elevated myocardial infarction) I21.4 Oral cancer C06.9 Anemia D64.9 Multiorgan failure Hypoxia R09.02 Acute renal failure N17.9 Hyperkalemia E87.5 Hyponatremia E87.1 Congestive heart failure I50.9
[2021-10-30] MEDS: sucralfate 1 gm Tablet PO ×2 (09:39→14:03)
[2021-10-30] MEDS: folic acid 1 mg Tablet PO (09:39)
[2021-10-30] MEDS: oxyCODONE 5 mg IR Tab/Cap 2.5 MG PEG-TUBE (09:39)
[2021-10-30] MEDS: amiodarone 200 mg Tablet 400 MG PEG-TUBE (09:39)
[2021-10-30] MEDS: pantoprazole 40 mg SDV IVP ×2 (09:39→22:13)
[2021-10-30] MEDS: metoprolol tartrate 25 mg Tablet PEG-TUBE (09:42)
[2021-10-30] MEDS: silver sulfadiazine cream 1% 50 gm 1 APPLIC TOPICAL (10:00)
[2021-10-30] MEDS: HYDROmorphone 1 mg/mL INJ 1 mL 0.5 MG IVP (10:37)
--- NOTE | 2021-10-30 12:33 | PC.CHAP ---
Pastoral Care Encounter/Spiritual Assessment Type of Contact [] Declined coil tester visit [] Patient/Family/Request visit [] Outpatient visit [] Follow-up visit [] Physician referral [] Code/Alert [x] Routine visit [] Staff referral [] Actively dying [] Patient sleeping [] Family support [] [] Out of room [] Palliative care [] [x] Receiving care in room [] Pre-surgical visit [] Trauma [] Long length of stay [x] ICU visit [] Other: Relational/Emotional Strength [] Patient feels connected with others/family/visitors/staff [] Distress [] Loneliness/isolation [] Abandonment Spirituality of Patient [] Person of Cori [] Attends Congregational of their Cori [] Believes in Prayer [] Reads Bible or Oriental Orthodox materials [] There are Spiritual issues to be addressed Steam Meter Reader Interventions [x] Prayer [] Active listening [] Non-anxious presence [] Spiritual/emotional support [] Crisis/trauma care [] Spiritual counseling [] Bereavement support [] Provided bereavement packet [] Provided Bible/devotional materials [] Provided toy/stuffed animal, coloring book to patient or family member [] Provided Communion [] Anointing/[place] [] Salvation [x] Completed spiritual assessment [] Other: Impact on Illness or Injury [] Angry [] Fearful [] Anxious [] Often cries [] Exhaustion [] Unable to work [] Unable to attend amish [] Unable to walk/stand [] Unable to read [] Unable to drive [] Unable to eat/drink [] Unable to sleep [] Unable to be with family [] Patient intubated [] Other: Summary Time spent with patient
[2021-10-30] MEDS: benzocaine-menthol 78 gm Canister 1 SPRAY TOPICAL (12:41)
[2021-10-30] MEDS: ketorolac 30 mg/mL INJ 15 MG IVP (14:03)
[2021-10-30] MEDS: HYDROmorphone 1 mg/mL INJ 1 mL IVP (14:04)
[2021-10-30] MEDS: morphine 10 mg/0.5 mL oral liq UD SUBLINGUAL (15:51)
--- NOTE | 2021-10-30 18:43 | PC.NURSE ---
End of Shift: Patient was placed on full comfort care today per family. Patient had a very difficult day with pain generalized throughout her body through the entire shift. After medication adjustment and comfort care medications given patient appeared to be more comfortable. Family has been in and out by the bedside throughout the shift. Patient had one diarrhea stool and was changed and bed bath was given. All wounds were cleansed and redressed. Patient only had 50 ml of urine out of catheter. Patients tube feeding were stopped per family request.
[2021-10-30] MEDS: glycopyrrolate 0.2 mg/mL SDV 2 mL IV (20:47)
[2021-10-30] MEDS: gabapentin 100 mg Capsule PEG-TUBE (22:13)
--- NOTE | 2021-10-30 22:18 | PC.NURSE ---
report called to [id number] [id number]
--- NOTE | 2021-10-31 01:44 | PC.NURSE ---
Patient has been asked multiple times if she is in pain. Each time she states no.
--- NOTE | 2021-10-31 09:45 | PC.SOCIAL ---
IMM Update pg 2 of IMM updated and reviewed w/patient. Copy provided and copy in chart dated and initialed.
--- NOTE | 2021-10-31 10:37 | PC.NURSE ---
Patient stated she wanted none of her medications this am. The assistant store manager in room at time of refusal.
--- NOTE | 2021-10-31 11:09 | P.DS_ITS ---
Discharge Providers Date of Admission: 10/26/21 05:55 Date of Discharge: October 31, 2021 Attending Provider at Admission: Gustavo Parisi MD Attending Provider at Discharge: Carola Vargas MD Primary Care Provider: Bhavik Ball MD Diagnoses at Discharge Discharge Diagnosis (1) NSTEMI (non-ST elevated myocardial infarction): Status: Acute (2) Oral cancer: Status: Acute (3) Anemia: Status: Acute (4) Multiorgan failure: Status: Acute (5) Hypoxia: Status: Acute (6) Acute renal failure: Status: Acute (7) Hyperkalemia: Status: Acute (8) Hyponatremia: Status: Acute (9) Congestive heart failure: Status: Acute Reason for Visit Reason for Visit: CP/SOB Hospital Course Hospital Course 86-year-old lady with head and neck cancer underwent palliative resection and skin graft of the floor of the left side of the mouth and left side tongue from left arm by ENT Dr. Wilde at [facility] 09/28, then [facility] admitted at [facility] on October 26 with NSTEMI, acute on chronic anemia, cellulitis over her graft harvest site and likely gangrene and rejection of the graft over her tongue with noted darkening.? She was noted to have multiple wounds over her neck from recent tracheostomy, multiple wounds on her sacrum and buttock and anteriorly on the upper thighs.? 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 During the hospital stay she has been noted to have multiorgan failure.? She had an NSTEMI, as evidenced by elevated troponins, echocardiogram showed an EF of 25%.? She is not known to have any pertinent cardiac history in the past.? As a result of cardiomyopathy, likely ischemic, she is also developed systolic heart failure with signs of CHF.? Consideration also for pneumonia given bilateral chest infiltrates, noted coughing episodes and new oxygen requirement.? Aspiration is certainly a possibility given recent tracheostomy and inability to take any p.o. intake, increased secretions in the mouth.? Hospital course has been complicated by development of acute renal failure which is getting progressively worse with creatinine at 2.8 today.? She is oliguric, daily urine output is around 50 cc..? Additionally developing complications of hyponatremia and hyperkalemia likely as a result of her kidney failure.? She has declined aggressive interventions including coronary angiogram, declined defibrillator, declined dialysis.? She declines transfer to [place] in [place].? She is malnourished.? She feels poorly, is in pain and is extremely uncomfortable.? She tells me that she would like to transition all measures to palliative only and maximize comfort in her remaining time.? She states that she understands that without above interventions she is likely to in the next few days.? Her children have been present at bedside during the course of these discussions and agree with transitioning to hospice care only. Given continued worsening, patient has made the decision to transition to hospice care with comfort measures only..? Patient wishes to return home with family for her remaining time. Physical Exam Narrative: Detailed physical exam deferred as patient is comfort measures only. She is seen at the bedside. Appears comfortable at this time. Pain is con trolled. Urinary Catheter Management: Esparza: Cath Placed During This Visit: yes Reason for Continuing Indwelling Catheter: Acute Urinary Retention or Obstruction Urinary Catheter Date of Insertion: 10/27/21 Urinary Catheter Time of Insertion: 12:59 Discharge Data Studies Completed and Pending Completed Studies During Hospitalization Category Date Time Status CT neck wo con [id number] Routine Cat Scan 10/26/21 07:05 Completed CTA chest [CT angio chest PE protcl 62267] Stat Cat Scan 10/26/21 05:20 Completed CXRP [XR chest 1V portable [id number]] Stat Exams 10/27/21 18:47 Completed XR chest 1V portable [id number] Stat Exams 10/26/21 04:30 [place] [id number] Routine Ultrasound 10/26/21 07:05 [place] [id number] Routine Ultrasound 10/26/21 07:05 Completed CV. echo complete* [id number] Stat Ultrasound 10/26/21 06:37 Completed Radiology Impressions Chest CTA 10/26/21 05:20 IMPRESSION: 1. No pulmonary embolus. 2. Pulmonary edema with moderate bilateral pleural effusions. 3. Bilateral lower lobe consolidations, concerning for superimposed pneumonia. Clinical correlation is recommended. Neck CT 10/26/21 07:05 IMPRESSION: Unremarkable tracheostomy site without evidence of surrounding inflammatory changes or fluid collection, as clinically questioned. Chest X-Ray 10/27/21 18:47 IMPRESSION: 1. Distal aspect of the PICC line projects over the cavoatrial junction. 2. Bilateral pleural effusions and cardiomegaly, consistent with congestive heart failure. 3. Patchy bibasilar and right perihilar opacities are similar to the prior study. Laboratory Results WBC 10.0 10^3/uL (4.0-10.0) 10/29/21 07:07 RBC 3.02 10^6/uL (4.1-5.3) L 10/29/21 07:07 Hgb 9.2 g/dL (11.5-15.3) L 10/29/21 07:07 Hct 29.2 % (37.0-47.0) L 10/29/21 07:07 MCV 96.7 fl (81-99) 10/29/21 07:07 MCH 30.5 pg (28.0-34.0) 10/29/21 07:07 MCHC 31.5 g/dL (30.0-36.0) 10/29/21 07:07 RDW 18.1 % (12.1-15.1) H 10/29/21 07:07 Plt Count 145 10^3/cmm (130-400) 10/29/21 07:07 MPV 12.1 fL (7.4-10.4) H 10/29/21 07:07 Neut % (Auto) 70.7 % 10/29/21 07:07 Lymph % (Auto) 24.3 % 10/29/21 07:07 Tyler % (Auto) 3.8 % 10/29/21 07:07 Eos % (Auto) 0.0 % 10/29/21 07:07 Baso % (Auto) 0.2 % 10/29/21 07:07 Neut # (Auto) 7.06 10^3/uL (1.8-7.7) 10/29/21 07:07 Lymph # (Auto) 2.4 10^3/uL (0.8-4.8) 10/29/21 07:07 Tyler # (Auto) 0.4 10^3/uL (0.2-0.9) 10/29/21 07:07 Eos # (Auto) 0.0 10^3/uL (0.0-0.8) 10/29/21 07:07 Baso # (Auto) 0.0 10^3/uL (0.0-0.1) 10/29/21 07:07 Nucleated RBC % (auto) 0.3 % 10/29/21 07:07 Nucleated RBCs # 0.0 /100WBC 10/29/21 07:07 ESR 65 mm/hr (0-15) H 10/26/21 05:00 PT 12.90 SECONDS (12.1-14.9) 10/26/21 05:00 INR 0.95 (0.8-1.2) 10/26/21 05:00 D-Dimer 3.80 ug/mIFEU (0-0.59) H 10/26/21 05:00 Sodium 126 mmol/L (136-145) L 10/29/21 07:07 Potassium 5.8 mmol/L (3.5-5.1) H 10/29/21 07:07 Chloride 93 mmol/L (98-107) L 10/29/21 07:07 Carbon Dioxide 21 mmol/L (22-29) L 10/29/21 07:07 Anion Gap 17.8 (5-19) 10/29/21 07:07 BUN 53 mg/dL (8-23) H 10/29/21 07:07 Creatinine 2.8 mg/dL (0.5-0.9) H 10/29/21 07:07 GFR Calculation Not Reportable 10/29/21 07:07 Glucose 185 mg/dL (65-115) H 10/29/21 07:07 Calculated Osmolality 281 mOsm/kg (285-295) L 10/29/21 07:07 Lactic Acid 1.7 mmol/L (0.5-2.2) 10/26/21 11:02 Calcium 7.7 mg/dL (8.5-10.5) L 10/29/21 07:07 Phosphorus 1.7 mg/dL (2.5-4.5) L 10/26/21 05:00 Magnesium 1.8 mg/dL (1.7-2.3) 10/26/21 05:00 Iron 21 ug/dL (37-145) L 10/26/21 05:00 TIBC 114 mcg/dl 10/26/21 05:00 % Saturation 18.4 % (20-50) L 10/26/21 05:00 Unsat Iron Binding 93 ug/dL (112-347) L 10/26/21 05:00 Ferritin 2381 ng/mL (15-150) H 10/26/21 05:00 Total Bilirubin 0.2 mg/dL (0.15-1.2) 10/29/21 07:07 AST 20 U/L (0-32) 10/29/21 07:07 ALT 22 U/L (0-33) 10/29/21 07:07 Alkaline Phosphatase 132 U/L (35-105) H 10/29/21 07:07 Troponin T Baseline 557 ng/L (0-10) H* 10/26/21 05:00 Troponin T 120 Minute 508.9 ng/L (0-10) H 10/26/21 06:35 Delta Troponin T -48.1 ABS# (0-10) L 10/26/21 06:35 Troponin T Hi Sens 6Hr 453.1 ng/L (0-10) H 10/26/21 11:02 Troponin T Hi Sens 6Hr Delta -103.9 ng/L (0-12) L 10/26/21 11:02 C-Reactive Protein 114.8 mg/L (0.0-4.9) H 10/26/21 05:00 NT-Pro-B Natriuret Pep > 58321 pg/mL (0-450) H 10/26/21 05:00 Total Protein 5.8 g/dL (6.6-8.7) L 10/29/21 07:07 Albumin 1.8 g/dL (3.5-5.2) L 10/29/21 07:07 Globulin 4.0 g/dL (1.3-4.6) 10/29/21 07:07 Vitamin B12 820 pg/mL (232-1245) 10/26/21 05:00 Folate 18.1 ng/mL (4.8-37.3) 10/26/21 05:00 Procalcitonin 1.04 ng/mL (0-0.5) H 10/26/21 05:00 TSH 9.72 uIU/mL (0.27-4.20) H 10/26/21 05:00 Random Cortisol 30.70 ug/dL (2.47-19.5) H 10/27/21 01:41 Urine Color Yellow (Yellow) 10/27/21 12:51 Urine Appearance Cloudy (CLEAR) 10/27/21 12:51 Urine pH 5 (5-7) 10/27/21 12:51 Ur Specific [place] 1.010 (1.005-1.030) 10/27/21 12:51 Urine Protein 3+ (Negative) H 10/27/21 12:51 Urine Glucose (UA) Norm (Normal) 10/27/21 12:51 Urine Ketones 1+ (Negative) H 10/27/21 12:51 Urine Blood Neg (Negative) 10/27/21 12:51 Urine Nitrate Negative (Negative) 10/27/21 12:51 Urine Bilirubin Neg (Negative) 10/27/21 12:51 Urine Urobilinogen 1 mg/dL (Negative) H 10/27/21 12:51 Ur Leukocyte Esterase Trace (Negative) H 10/27/21 12:51 Urine RBC None /hpf (0-2) 10/27/21 12:51 Urine WBC 0-4 /hpf (0-5) H 10/27/21 12:51 Ur Squamous Epith Cells 5-10 /hpf (0-5) H 10/27/21 12:51 Amorphous Sediment 3+ /hpf 10/27/21 12:51 Urine Bacteria 1+ /hpf (NONE) H 10/27/21 12:51 Urine Mucus 1+ /hpf 10/27/21 12:51 Vancomycin Trough 14.2 ug/mL (10-15) 10/29/21 07:07 Coronavirus 229E (PCR) Not detected (NOT DETECT) 10/27/21 16:27 SARS-CoV-2 (PCR) Not detected (NOT DETECT) 10/27/21 16:27 Vitals Last Vital Signs Temp 98.0 F 10/30/21 12:26 Pulse 74 10/30/21 22:00 Resp 11 L 10/30/21 22:00 BP 111/58 10/30/21 22:00 Pulse Ox 100 10/30/21 22:00 O2 Del Method 10/30/21 22:00 O2 Flow Rate 2 10/30/21 22:00 Discharge Plan Discharge Patient Disposition: Hospice - Home Condition: Stable Prescriptions: New lorazepam 0.5 mg Tablet 0.5 mg feeding tube Q4H PRN (Reason: Anxiety) 30 Days Qty: 30 0RF fentanyl 75 mcg/hr Patch 72 Hour 1 patch transdermal Q72H 30 Days Qty: 10 0RF morphine concentrate 10 mg/0.5 mL Syringe 2 - 10 mg sublingual Q2H PRN (Reason: Moderate To Severe Pain or SOB) 30 Days Qty: 1 0RF Isopto Tears 0.5 % Drops 2 drp eye-both Q2H PRN (Reason: Dry Eye(S)) 30 Days Qty: 30 0RF acetaminophen 325 mg Tablet 650 mg feeding tube Q4H PRN (Reason: Temperature greater than 100.5) Qty: 30 0RF Discontinued lovastatin 40 mg tablet 60 mg feeding tube DAILY@17 furosemide 10 mg/mL Solution 40 mg feeding tube Q24H PRN (Reason: Edema) Imodium A-D 2 mg Tablet 2 mg PO QID PRN (Reason: Diarrhea) thiamine HCl (vitamin B1) 100 mg Tablet 100 mg feeding tube DAILY@08 Isosource 1.5 Kian 0.07 gram-1.5 kcal/mL Liquid See Rx Instructions .ROUTE .COMPLEX Rx Instructions: 1.5 via g-tube bolus feeding for 250mls four times a day @02:00,08:00,14:00,20:00 acetaminophen 325 mg Tablet 650 mg PO Q4H PRN (Reason: Pain) gabapentin [Neurontin] 250 mg/5 mL Solution 100 mg feeding tube TID@00,08,16 cyanocobalamin (vitamin B-12) 1,000 mcg/mL solution 1,000 mcg IM Q30D folic acid 1 mg Tablet 1 mg feeding tube DAILY@08 amoxicillin-pot clavulanate [Augmentin] 500-125 mg Tablet 1 tab feeding tube BID@08,20 chlorhexidine gluconate 0.12 % Mouthwash 15 ml PO .QSHIFT psyllium Packet 1 packet feeding tube DAILY@08 ramelteon 8 mg Tablet 8 mg PO DAILY PRN (Reason: Insomnia) Rx Instructions: per tube No Action metoprolol tartrate 50 mg Tablet 50 mg feeding tube BID@08,20 Rx Instructions: hold for sbp less than 100 and pulse less than 60 oxycodone 5 mg/5 mL Solution 2.5 mg feeding tube Q4H PRN (Reason: Pain) Discharge Orders: Discharge Order (Routine); Ordered 10/31/21 Ordered By: Carola Vargas Referrals: [facility] [Outside] Bhavik Ball MD [Primary Care Provider] - Discharge Diet: Start new tube feeds as directed Discharge Activity: Resume usual activity Patient Instructions: Opioid Safety Discharge Attestations Time Spent in Discharge Care*: greater than 30 min Quality Metrics Clinical Quality Measures [ Acute Myocardial Infaction { Clinical Trial Participant: No; Contraindication to aspirin: Other (comfort care ); Contraindication to statin: Other (comfort care ); Contraindication to PCI: Other (comfort care ); Contraindication to Fibrinolytics: Other (comfort care )}] Coding Level of Care Code Acute [facility] note Diagnoses NSTEMI (non-ST elevated myocardial infarction) I21.4 Oral cancer C06.9 Anemia D64.9 Multiorgan failure Hypoxia R09.02 Acute renal failure N17.9 Hyperkalemia E87.5 Hyponatremia E87.1 Congestive heart failure I50.9
--- NOTE | 2021-10-31 15:00 | PC.NURSE ---
Discharge instructions discussed with family member, Meche. All questions answered. Patient home on hospice.
[2021-10-31 15:01] VITALS: BP 111/58; PULSE 74; RESP 11; O2SAT 100
--- NOTE | 2021-10-31 15:04 | PC.NURSE ---
PICC line removed per SS/Hospice.
== END 2021-10-31 15:03 | disposition hospice, home (50) | DRG 280 ==
LOC: ER 04:59 → ER IP 08:08 → ICU 10:45 → MEDSURG 10-30 23:25
PROVIDERS: Internal Medicine; Admitting Provider Family Medicine; Emergency Provider Emergency Medicine; PCP Family Medicine; Visit Provider Student in an Organized Health Care Education/Training Program
DX: I21.4 Non-ST elevation (NSTEMI) myocardial infarction (principal); I50.21 Acute systolic (congestive) heart failure; J18.9 Pneumonia, unspecified organism; J44.0 Chronic obstructive pulmonary disease with (acute) lower respiratory infection; I13.0 Hypertensive heart and chronic kidney disease with heart failure and stage 1 through stage 4 chronic kidney disease, or unspecified chronic kidney disease; E87.1 Hypo-osmolality and hyponatremia; N17.9 Acute kidney failure, unspecified; L03.114 Cellulitis of left upper limb; T86.820 Skin graft (allograft) rejection; T86.822 Skin graft (allograft) (autograft) infection; C02.0 Malignant neoplasm of dorsal surface of tongue; Z93.1 Gastrostomy status; Z93.0 Tracheostomy status; Z85.828 Personal history of other malignant neoplasm of skin; N18.9 Chronic kidney disease, unspecified; E11.22 Type 2 diabetes mellitus with diabetic chronic kidney disease; D63.1 Anemia in chronic kidney disease; Z66 Do not resuscitate; T17.290A Other foreign object in pharynx causing asphyxiation, initial encounter; L89.152 Pressure ulcer of sacral region, stage 2; Z51.5 Encounter for palliative care; E87.5 Hyperkalemia; I48.91 Unspecified atrial fibrillation; R33.9 Retention of urine, unspecified; I95.9 Hypotension, unspecified
CPT/HCPCS: 36415; 36430; 36569; 36592; 51702; 51798; 70490; 71045; 71275; 80053; 80202; 81001; 82274; 82533; 82607; 82728; 82746; 83540; 83550; 83605; 83630; 83735; 83880; 84100; 84132; 84145; 84443; 84484; 85014; 85018; 85025; 85378; 85610; 85651; 86140; 86850; 86900; 86920; 87040; 87493; 87635; 93005; 93306; 93970; 93971; 94664; 96372; 99285; C9113; J0282; J1170; J1650; J1885; J1940; J2270; J2543; J3370; J3411; J3490; J7050; J7060; P9016; P9047; Q9967